=== PATIENT | female | born 1930 | race Caucasian/White ===

== ENCOUNTER → 2016-05-06 | Outpatient (CLI) | payer OTHER ==
--- NOTE | 2016-05-06 11:33 | DX ---
Left Clavicle, 2 Views, 10:27 a.m. Clinical History: 86-year-old female presents for follow up of a left clavicular injury sustained on April 23, 2016. ICD10 Diagnostic Code: S42.022A. Comparison Study: Left clavicle, dated April 27, 2016, and CT imaging of the chest, dated April 27, 2016. Findings: The chest CT demonstrated a medial left clavicular fracture which is challenging to appreci ate because of osseous superimposition. Median sternotomy wires and left subclavian pacemaker wires a re present. The bones are demineralized. There is marked narrowing of the left acromiohumeral distanc e, consistent with a chronic rotator cuff tear. There is some degenerative osteoarthrosis of the AC j oint and of the glenohumeral joint. Impression: Stable appearances since April 27, 2016 in this patient with a left medial clavicular fracture (seen to better advantage on prior CT imaging).
== END ==
LOC: BMCIMAGING 10:15
PROVIDERS: ATTEND Family Medicine
DX: S42.022D Displaced fracture of shaft of left clavicle, subsequent encounter for fracture with routine healing (principal)

== ENCOUNTER → 2016-05-27 | Outpatient (CLI) | payer OTHER ==
--- NOTE | 2016-05-27 10:05 | DX ---
Left Clavicle, Two Views Indication: Left medial fracture. Follow up. Comparison: May 06, 2016, April 27, 2016, and April 23, [address] of the chest dated Decem 2015 Technique: Two AP views. Findings: The subacute medial left clavicular head fracture is obscured by overlying spine on both vi ews. Bones are anatomically aligned. No new fracture. Chronic rotator cuff tear and osteoarthritis ar e unchanged. Left lung apex is clear. Impression: Anatomically aligned subacute medial left clavicle head fracture is obscured by overlying spine.
== END ==
LOC: BMCIMAGING 09:33
PROVIDERS: ATTEND Family Medicine
DX: S42.022D Displaced fracture of shaft of left clavicle, subsequent encounter for fracture with routine healing (principal)

== ENCOUNTER → 2016-09-05 | Outpatient (CLI) | payer OTHER | LOC: FLAB 16:51 → EDSTATUS 16:51 → FIMAGING 16:52 | PROVIDERS: ATTEND Internal Medicine | DX: R60.0 Localized edema (principal) ==

== ENCOUNTER 2016-10-07 09:44 | Inpatient (IN) | payer OTHER ==
--- NOTE | 2016-10-07 10:42 | EDPHY ---
H & P Stated Complaint: skin irritation after animal scratch on left leg yesterday. Time Seen by Provider: 10/07/16 10:02 - Personal History Current Tetanus/Diphtheria Vaccine: No Current Tetanus Diphtheria and Acellular Pertussis (TDAP): No - Medical/Surgical History Hx Asthma: No Hx Chronic Respiratory Disease: No Hx Diabetes: No Hx Cardiac Disease: Yes Hx Renal Disease: No Hx Cirrhosis: No Hx Alcoholism: No Hx HIV/AIDS: No Hx Splenectomy or Spleen Trauma: No Other PMH: valve replacement, dementia, HTN,. double masectomy - Social History Smoking Status: Former smoker Constitutional: Initial Vital Signs Temperature (C) 36.9 C 10/07/16 09:45 Heart Rate 83 10/07/16 09:45 Respiratory Rate 16 10/07/16 09:45 Blood Pressure 124/67 H 10/07/16 09:45 O2 Sat (%) 97 10/07/16 09:45 O2 Delivery Mode Room Air Allergies/Adverse Reactions: EVANGELINA Inhibitors Allergy (Verified 10/07/16 09:53) codeine Allergy (Verified 06/01/09 12:25) Home Medications: Medication Instructions Recorded Furosemide [Lasix] 20 mg PO DAILY 08/18/14 Levothyroxine [Synthroid] 88 mcg PO DAILY@08/18/14 Mv-Mn/FA/Coq10/Lycopene/Lutein 1 each PO DAILY 08/18/14 [Theragran-M Premier 50+ Caplet] Spironolactone [Aldactone] 12.5 mg PO DAILY 08/18/14 Valsartan [Diovan] 80 mg PO DAILY 08/18/14 hydrOXYzine HCL [Vistaril] 10 mg PO HS 08/18/14 Acetaminophen [Tylenol 325mg (*)] 325 mg PO Q4 PRN 04/27/16 Ciprofloxacin [Cipro] 500 mg PO BID 04/27/16 Nebivolol HCl [Bystolic 5 mg (*)] 5 mg PO DAILY@04/27/16 Sertraline HCl [Zoloft 25mg (*)] 25 mg PO HS 04/27/16 Warfarin Sodium [Coumadin 4MG (*)] 4 mg PO DAILY16 04/27/16 Medical Decision Making ED Course/Re-evaluation: CHIEF COMPLAINT: Left leg erythema HISTORY OF PRESENT ILLNESS: This patient is an 86-year-old female who presents to the Emergency Department with erythema and burning pain to her lower left extremity beginning last night. Per pharm spec, her legs appeared normal yesterday. She reports a small abrasion to her left tipton secondary to a neighbor 's dog scratching her with its claw yesterday. She was wearing jeans at the time. At time of presentation, she denies pain to her leg. She denies subjective fever or chills. She has no additional complaints. The patient takes Coumadin and has a history of coronary artery disease with prior CABG. REVIEW OF SYSTEMS: A 10 point review of systems was performed and is negative with the exception of the elements mentioned in the history of present illness. PHYSICAL EXAM: BP 124/67. HR 83. Pulse ox 97%. RR 16. Temp noted at 36.9C General Appearance: Alert, well hydrated, appropriate, and non-toxic appearing. Head: Atraumatic without scalp tenderness or obvious injury Eyes: Pupils equal, round, reactive to light and accommodation, EOMI, no trauma , no injection. Ears: Clear bilaterally, no perforation, normal landmarks Nose: Atraumatic, no rhinorrhea, clear. Throat: There is no erythema or exudates, no lesions, normal tonsils, mucus membranes moist. Neck: Supple, 2+ carotid upstroke, non-tender, no lymphadenopathy. Respiratory: No retractions, no distress, no wheezes, and no accessory muscle use. Lungs are clear to auscultation bilaterally. Cardiovascular: Regular rate and rhythm, no murmurs, rubs, or gallops. Bilateral carotid, radial, dorsalis pedis, and posterior tibial pulses intact. Good capillary refill all extremities. Gastrointestinal: Abdomen is soft, non-tender, non-distended, no masses, no rebound, no guarding, no peritoneal signs. Musculoskeletal: Normal active ROM of all extremities, atraumatic. Left lower leg is edematous, warm, and cellulitic. Neurological: Alert, appropriate, and interactive. The patient has normal DTRs and non-focal cranial nerves, motor, sensory, and cerebellar exam. Skin: No rashes, good turgor, no nodules on palpation. 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 Lives independently. DIFFERENTIAL DIAGNOSIS: The differential diagnosis for the patient's leg erythema included but was not limited to dermatitis, cellulitis. MEDICAL DECISION MAKIN-year-old female presents with acute onset left leg erythema suspicious for possible cellulitis. On exam, her entire lower leg is erythematous and mildly warm. She does have small abrasion just inferior to her left knee. She is afebrile at time of presentation and denies subjective fever. Will consult with Infectious Disease. Labs obtained. WBC elevated at 13.50. 1039: Consultation with Dr. Nikhil Phillip, ID specialist. 1109: Dr. Phillip evaluated the patient in the ED and agrees that she is experiencing cellulitis to her left lower leg. She will be started on IV Vancomycin and admitted to the hospitalist. 1113: Consultation with Kimmy Mason. Dr. Philippe Núñez, hospitalist, accepts admission to med/surg. - Data Points Laboratory Results: Laboratory Results 10/07/16 10:58 10/07/16 10/07/16 10/07/16 10:58 10:58 10:58 WBC 13.50 10^3/uL H 10^3/uL (3.80-9.50) RBC 4.29 10^6/uL 10^6/uL (4.18-5.33) Hgb 13.1 g/dL g/dL (12.6-16.3) Hct 39.8 % % (38.0-47.0) MCV 92.8 fL fL (81.5-99.8) MCH 30.5 pg pg (27.9-34.1) MCHC 32.9 g/dL g/dL (32.4-36.7) RDW 14.3 % % (11.5-15.2) Plt Count 169 10^3/uL 10^3/uL (150-400) MPV 9.8 fL fL (8.7-11.7) Neut % (Auto) 88.0 % H % (39.3-74.2) Lymph % (Auto) 4.4 % L % (15.0-45.0) Gladwin % (Auto) 7.1 % % (4.5-13.0) Eos % (Auto) 0.1 % L % (0.6-7.6) Baso % (Auto) 0.1 % L % (0.3-1.7) Nucleat RBC Rel Count 0.0 % % (0.0-0.2) Absolute Neuts (auto) 11.88 10^3/uL H 10^3/uL (1.70-6.50) Absolute Lymphs (auto) 0.59 10^3/uL L 10^3/uL (1.00-3.00) Absolute Monos (auto) 0.96 10^3/uL H 10^3/uL (0.30-0.80) Absolute Eos (auto) 0.01 10^3/uL L 10^3/uL (0.03-0.40) Absolute Basos (auto) 0.02 10^3/uL 10^3/uL (0.02-0.10) Absolute Nucleated RBC 0.00 10^3/uL 10^3/uL (0-0.01) Immature Gran % 0.3 % % (0.0-1.1) Immature Gran # 0.04 10^3/uL 10^3/uL (0.00-0.10) PT Pending INR Pending APTT Pending Sodium Pending Potassium Pending Chloride Pending Carbon Dioxide Pending Anion Gap Pending BUN Pending Creatinine Pending Estimated GFR Pending Glucose Pending Calcium Pending Departure - Departure Disposition: [facility] Inpatient Acute Clinical Impression: Left leg cellulitis Condition: Fair Referrals: Rut Barbosa MD [Primary Care Provider] - As per Instructions
[2016-10-07 11:09] LABS: % IMMATURE GRANULYOCYTES 0.3 % (0.0-1.1); ABSOLUTE IMMATURE GRANULOCYTES 0.04 10^3/uL (0.00-0.10); ADD DIFF? NO; ADD MORPH? NO; ADD SCAN? NO; ATYPICAL LYMPHOCYTE FLAG 20 (0-99); FRAGMENT RBC FLAG 0 (0-99); HEMATOCRIT 39.8 % (38.0-47.0); HEMOGLOBIN 13.1 g/dL (12.6-16.3); LEFT SHIFT FLG 10 (0-99); LIPEMIA HEMOLYSIS FLAG 80 (0-99); MEAN CELL HEMOGLOBIN 30.5 pg (27.9-34.1); MEAN CELL HEMOGLOBIN CONCENTR. 32.9 g/dL (32.4-36.7); MEAN CELL VOLUME 92.8 fL (81.5-99.8); MEAN PLATELET VOLUME 9.8 fL (8.7-11.7); PLATELET CLUMPS FLAG 0 (0-99); PLATELET COUNT 169 10^3/uL (150-400); RED BLOOD CELL COUNT 4.29 10^6/uL (4.18-5.33); RED CELL DISTRIBUTION WIDTH 14.3 % (11.5-15.2)
[2016-10-07 11:30] LABS: ANION GAP 8 mEq/L (8-16); CALCIUM 9.4 mg/dL (8.5-10.4); CARBON DIOXIDE 25 mEq/l (22-31); CHLORIDE 102 mEq/L (97-110); GLOMERULAR FILTRATION RATE 52; GLUCOSE 97 mg/dL (70-100); POTASSIUM 4.4 mEq/L (3.5-5.2); SODIUM 135 mEq/L (134-144)
[2016-10-07 11:32] LABS: APTT 40.5 SEC (23.0-38.0); INR 2.04 (0.83-1.16); PROTIME(PATIENT) 23.2 SEC (12.0-15.0)
[2016-10-07] MEDS ORDERED: ONDANSETRON DISINTEGRATING 4 MG TAB PO PRN (11:35)
[2016-10-07] MEDS ORDERED: ONDANSETRON 4 MG/2 ML VIAL IVP PRN (11:35)
[2016-10-07] MEDS ORDERED: HYDROmorphONE/DILAUDID 1 MG/ML SYR IVP PRN (11:35)
[2016-10-07] MEDS ORDERED: NS 1,000 ML IV SCH (11:45)
[2016-10-07] MEDS: VANCOMYCIN 750 MG in D5W 150 ML IV SCH ×2 (12:07→23:26)
--- NOTE | 2016-10-07 12:32 | GHP ---
[f rep st] HISTORY AND PHYSICAL DATE OF ADMISSION: 10/07/2016 HISTORY OF PRESENT ILLNESS: The patient is a pleasant 86-year-old female with a history of atrial f ibrillation, presumed mitral valve replacement, chronic venous insufficiency, who was scratched by a dog through her jeans yesterday, and this morning she woke up and her leg was remarkably red. She had really no fever and chills overnight. She has not felt poorly. She has not fallen. She was scratched, not bitten. She has not had fevers or chills. She notes that yesterday her left leg looked the same as her right, which is pigmented with chronic venous stasis changes today. It is bright red and purpuric. It is tender. She has not had lightheadedness or dizziness. [facility] for chronic poorly healing right lower extremity, presumed venous insufficiency ulcer, which appears to be quite well now. PAST MEDICAL HISTORY: 1. Presumed atrial fibrillation. 2. 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 3. Pacemaker placement. 4. Chronic venous insufficiency. 5. Possible COPD. 6. Double mastectomy. REVIEW OF SYSTEMS: Complete 10-point review of systems conducted and negative except as noted in HP I. ALLERGIES: EVANGELINA inhibitors and codeine. MEDICATIONS: Tylenol, ciprofloxacin, Lasix, hydroxyzine, levothyroxine, nebivolol, sertraline, spir onolactone, valsartan, warfarin. SOCIAL HISTORY: She lives off in [facility]. She lives independently. She does well. 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 She has 1 glass of wine with dinner. She is a nonsmoker. FAMILY HISTORY: Parents . PHYSICAL EXAMINATION: PRESENTING VITALS: Temp 37, blood pressure 124/67, pulse 83, breathing 16 ti mes a minute, 97% on room air. GENERAL: No acute distress. HEENT: Sclerae anicteric. Oropharynx clear. Mucous membranes moist. NECK: Supple, without lymphadenopathy or JVD. LUNGS: Clear to a uscultation anterolaterally. HEART: S1, S2. There is a holosystolic murmur with a metallic click. Pacemaker is clean, dry, and intact. She has had double mastectomies. ABDOMEN: Soft, nontender, nondistended. EXTREMITIES: Left lower extremity is red, even purpuric. It is warm. There is a l ittle bit of lymphangitic streaking in the medial thigh. There is no tender inguinal lymphadenopath y. There is no fluctuance. The site of the scratch is scabbed over, but non-fluctuant. Her right lower extremity shows chronic venous stasis changes. The aforementioned ulcer looks quite good. NE UROLOGIC: Nonfocal. SKIN: As described in the extremity exam. LABORATORY DATA: White count is 13.5 with a left shift, hematocrit is 39.8, platelets are 169,000. INR is 2. Sodium 135, potassium 4.4, chloride 102, bicarb 25, BUN 18, creatinine 1.0, glucose 9.4. I have discussed the case with Dr. Nikhil Lamb. I have reviewed previous imaging studies and int erpreted them myself. ASSESSMENT AND PLAN: This is an 86-year-old female with multiple comorbidities, chronic venous tu is changes, here with ulcer. 1. Cellulitis: This is remarkable in nature. In appearance, I think part of it has to do with her chronic venous stasis changes. She received vancomycin. We will order blood cultures. ID will se e her in consultation as they know her. At this point in time, I do not suspect necrotizing fasciit is. 2. Coumadin therapy is presumed from mechanical valve. Her INR is therapeutic. We will follow dick harley. 3. Pain: We will schedule Tylenol and p.r.n. hydromorphone. 4. Heart failure: Patient appears euvolemic. I am actually going to give her a liter of IV fluids and we can start her diuretics tomorrow. 5. Mechanical heart valve: Blood cultures will be drawn. DISPOSITION: Inpatient status. /[id number]/MODL
[2016-10-07] MEDS: ACETAMINOPHEN 500 MG TAB PO SCH ×2 (14:34→20:41)
--- NOTE | 2016-10-07 16:07 | WOCRNPDOC ---
WOCRN Advanced Assessment Note - Skin Integrity Problem, Advanced Assess Left Lower Leg Dressing Type: Open to Air Exudate Amount: Minimal Exudate Color: Red, Brown Exudate Characteristic(s): Cloudy, Sanguinopurulent Integumentary Issue Intervention: Dressing Applied, Dressing Initialed & Dated, Silver Gel Applied Heather Wound Tissue: Hot, Swollen, Erythema Marked by Wound RN, Hemosiderin Staining, Painful/Tender Heather Wound Swelling: Moderate Wound Bed Color: Red Wound Bed Constitution: Draining Purulent Blister Site Measurement - Head-to-Toe Length X Width X Depth (cm): [id number] Skin Integrity Problem Comment: During assessment of LLE, an intact bulla was noted just distal to L knee, fluctuant w/ pale coloring indicative of purulence. Cleansed site w/ NS and gauze, and distal margin opened up, revealing sanguinopurulent drainage. Wound culture taken, however due to the skin over this site remaining mostly intact,it is likely culture will grow cutaneous bacteria. Flushed under the intact skin w/ NS to cleanse site, then applied Silvasorb gel and Allevyn. Marked erythema from ankle to lower thigh. There is also significant hemosiderin staining throughout this extremity, consistent w/ venous stasis. Patient has +2 pitting edema, noticeably more so than other leg. Will report findings to ID. set up mechanic Karina present and assisting. Wound RN will follow up with patient on Wednesday 10/11. Right Lower Leg Dressing Type: Open to Air Exudate Amount: None Exudate Characteristic(s): None Heather Wound Tissue: Hemosiderin Staining, Ankle Flare Skin Integrity Problem Comment: Fully epithelialized, healing wounds noted over R lateral ankle/lower leg. Per patient report, she had a venous stasis wound to this site for "several months," and [facility]. Presently, wound remains epithelialized, w/ some venous stasis dermatitis noted to surrounding tissue. Entire R leg has hemosiderin staining throughout, and trace edema. Site does not require wound care at this time. Patient reports wearing compression stockings in the outpatient setting, and will continue to do so upon dc.
--- NOTE | 2016-10-07 19:04 | PCMIDPN ---
Assessment/Plan: Assessment: Left lower extremity cellulitis. This appears to start from a a small traumatic injury on the anterior upper portion of her left tipton. She has a remarkable erythematous response to this which I attribute to confluent purpuric changes with inflammation in her lower extremity. Underlying this I think is routine cellulitis probably streptococcal or staphylococcal. Patient does have a history of MRSA wound infections of her leg. Will use vancomycin 750 mg IV q.12 hours. Will follow her by laboratory and clinically going forward. Alerted her primary care physician Dr. Barbosa to her admission. Plan: 1. vancomycin 750 mg IV q.12 hours. 2. Follow appearance of the left lower extremity. 3. Follow up on blood cultures. 10/07/16 19:57 Subjective: Patient is resting comfortably. She is nontoxic and does not complain of fevers or chills. She in fact is quite surprised that her left lower extremity looks as red as it does since yesterday. The injury with the dog occurred in the evening yesterday. No fevers or chills. Objective: Vancomycin # 1 Vital Signs Temp Pulse Resp BP Pulse Ox 37 C 75 18 127/64 H 96 10/07/16 13:57 10/07/16 13:57 10/07/16 13:57 10/07/16 13:57 10/07/16 13:57 10/06/16 10/07/16 10/08/16 05:59 05:59 05:59 Intake Total 650 Balance 650 - Physical Exam General Appearance: WD/WN, alert, no apparent distress, thin, non-toxic Respiratory: lungs clear, normal breath sounds, No respiratory distress Cardiac/Chest: regular rate, rhythm, No tachycardia Extremities: pedal edema ( bilateral lower extremities but left much greater than right.), inflammation ( Left side), erythema, No non-tender, No normal inspection ( left lower extremity with significant edema compared to right. Positive erythema on the anterior aspect.) Skin: normal color, warm/dry, rash Neuro/Psych: alert, normal mood/affect, oriented x 3 ICD10 Worksheet Patient Problems: Problems Problem Status Onset Left leg cellulitis Acute C. difficile diarrhea Acute ~08/13/16 Fracture of left clavicle Acute Leg ulcer Acute MRSA (methicillin resistant Staphylococcus aureus) Acute 04/12/16
[2016-10-07] MEDS: SERTRALINE HCL 25 MG TAB PO SCH (20:42)
[2016-10-07] MEDS: WARFARIN SODIUM 4 MG TAB PO SCH (20:42)
[2016-10-07] MEDS: CLOBETASOL PROPIONATE TP SCH (20:42)
[2016-10-07] MEDS: hydrOXYzine HCL 25 MG TAB PO SCH (20:42)
[2016-10-07] MEDS: FLUOCINONIDE 0.05% 15 GM CREAM TP SCH (23:27)
[2016-10-08 05:45] LABS: % IMMATURE GRANULYOCYTES 0.4 % (0.0-1.1); ABSOLUTE IMMATURE GRANULOCYTES 0.03 10^3/uL (0.00-0.10); ADD DIFF? NO; ADD MORPH? NO; ADD SCAN? NO; ATYPICAL LYMPHOCYTE FLAG 0 (0-99); FRAGMENT RBC FLAG 0 (0-99); HEMATOCRIT 36.3 % (38.0-47.0); HEMOGLOBIN 11.9 g/dL (12.6-16.3); LEFT SHIFT FLG 0 (0-99); LIPEMIA HEMOLYSIS FLAG 80 (0-99); MEAN CELL HEMOGLOBIN 30.4 pg (27.9-34.1); MEAN CELL HEMOGLOBIN CONCENTR. 32.8 g/dL (32.4-36.7); MEAN CELL VOLUME 92.8 fL (81.5-99.8); MEAN PLATELET VOLUME 9.7 fL (8.7-11.7); PLATELET CLUMPS FLAG 10 (0-99); PLATELET COUNT 136 10^3/uL (150-400); RED BLOOD CELL COUNT 3.91 10^6/uL (4.18-5.33); RED CELL DISTRIBUTION WIDTH 14.4 % (11.5-15.2)
[2016-10-08 05:51] LABS: INR 2.1 (0.83-1.16); PROTIME(PATIENT) 23.7 SEC (12.0-15.0)
[2016-10-08] MEDS: ACETAMINOPHEN 500 MG TAB PO SCH ×3 (05:57→21:57)
[2016-10-08] MEDS: LEVOTHYROXINE 88 MCG TAB PO SCH (05:57)
[2016-10-08 06:08] LABS: ANION GAP 9 mEq/L (8-16); CALCIUM 8.6 mg/dL (8.5-10.4); CARBON DIOXIDE 19 mEq/l (22-31); CHLORIDE 107 mEq/L (97-110); CREATININE 0.9 mg/dL (0.6-1.0); GLOMERULAR FILTRATION RATE 59; GLUCOSE 88 mg/dL (70-100); POTASSIUM 3.9 mEq/L (3.5-5.2); SODIUM 135 mEq/L (134-144)
[2016-10-08] MEDS: FUROSEMIDE 20 MG TAB PO SCH (08:57)
[2016-10-08] MEDS: MULTIVITAMINS 1 EACH TAB PO SCH (08:57)
[2016-10-08] MEDS: SPIRONOLACTONE 25 MG TAB PO SCH (08:57)
[2016-10-08] MEDS: NEBIVOLOL HCL 5 MG TAB PO SCH (08:57)
[2016-10-08] MEDS: VALSARTAN 80 MG TAB PO SCH (08:58)
[2016-10-08] MEDS: VANCOMYCIN 750 MG in D5W 150 ML IV SCH ×2 (12:26→23:33)
--- NOTE | 2016-10-08 12:51 | HOSPPROG ---
Hospitalist Progress Note Assessment/Plan: Patient is an 86 y/o woman w a hx of afib, mitral valve replacement who was scratched by her dog and developed a lower extremity cellulitis. Today is my first encounter with the patient, chart reviewed. *left lower ext cellulitis/MRSA vanco blood cx pending *mitral valve replacement INR is therapeutic cont monitoring *Pain due to the above meds ordered *chronic venous insufficiency she has a chronic wound ulcer *dvt prophylaxis: On OAC Subjective: Kathy is not c/o any pain/ overall feeling fine. Objective: Vital Signs Temp Pulse Resp BP Pulse Ox 36.4 C 83 18 127/77 H 95 10/08/16 08:00 10/08/16 08:00 10/08/16 08:00 10/08/16 08:00 10/08/16 08:00 Microbiology 10/07/16 15:55 Gram Stain - Final Leg - Swab Laboratory Results 10/08/16 05:23 10/08/16 05:23 10/07/16 10/08/16 10/09/16 05:59 05:59 05:59 Intake Total 650 Balance 650 PT 23.7 SEC (12.0-15.0) H 10/08/16 05:23 INR 2.10 (0.83-1.16) H 10/08/16 05:23 - Physical Exam Constitutional: no apparent distress, chronically ill appearing Eyes: PERRL Ears, Nose, Mouth, Throat: hearing normal Cardiovascular: regular rate and rhythym, systolic murmur Respiratory: no respiratory distress Gastrointestinal: normoactive bowel sounds Skin: other (left lower extremity is reddened/ has a dressing on the upper tipton area/ minimal swelling) Neurologic: AAOx3 Psychiatric: interacting appropriately ICD10 Worksheet Patient Problems: Problems Problem Status Onset Left leg cellulitis Acute C. difficile diarrhea Acute ~08/13/16 Fracture of left clavicle Acute Leg ulcer Acute MRSA (methicillin resistant Staphylococcus aureus) Acute 04/12/16
--- NOTE | 2016-10-08 13:38 | PCMIDPN ---
Assessment/Plan: Assessment/Plan: 1. LLE cellulitis after trauma to skin: - small wound with some purulent drainage on left leg. Dressing/wound care noted. -Erythema is still significant and probably not much changed compared to yesterday. Not worse or extending beyond demarcated lines. - on vanco empirically - will order vanco trough for tonight - creatinine stable. - wound cx with GPC on GS, cultures pending - blood cx pending - Discussed importance of LE elevation. - Continue current care for now. Discussed plan of care with patient. Meds vanco 750mg q12- Subjective: AFebrile. feels better. denies LE pain. less swelling. still red throughout left leg. denies sob, abd pain . has loose stools which is chronic for several months. Objective: Vital Signs Temp Pulse Resp BP Pulse Ox 36.4 C 83 18 127/77 H 95 10/08/16 08:00 10/08/16 08:00 10/08/16 08:00 10/08/16 08:00 10/08/16 08:00 Microbiology 10/07/16 15:55 Gram Stain - Final Leg - Swab Laboratory Results 10/08/16 05:23 10/08/16 05:23 10/07/16 10/08/16 10/09/16 05:59 05:59 05:59 Intake Total 650 Balance 650 - Physical Exam General Appearance: alert, no apparent distress Respiratory: lungs clear Cardiac/Chest: regular rate, rhythm Extremities: swelling Abdomen: normal bowel sounds, non-tender, soft, No distended Skin: erythema (LLE: erythema superimposed on top of extensive chronic venous stasis pigmentation. skin is onlhy mild warm. non tnder. pitting edema present. ) ICD10 Worksheet Patient Problems: Problems Problem Status Onset Left leg cellulitis Acute C. difficile diarrhea Acute ~08/13/16 Fracture of left clavicle Acute Leg ulcer Acute MRSA (methicillin resistant Staphylococcus aureus) Acute 04/12/16
[2016-10-08] MEDS: SERTRALINE HCL 25 MG TAB PO SCH (21:57)
[2016-10-08] MEDS: WARFARIN SODIUM 4 MG TAB PO SCH (21:58)
[2016-10-08] MEDS: hydrOXYzine HCL 25 MG TAB PO SCH (21:58)
[2016-10-08] MEDS: CLOBETASOL PROPIONATE TP SCH (23:50)
[2016-10-08] MEDS: FLUOCINONIDE 0.05% 15 GM CREAM TP SCH (23:51)
[2016-10-09] MEDS: LEVOTHYROXINE 88 MCG TAB PO SCH (05:31)
[2016-10-09] MEDS: ACETAMINOPHEN 500 MG TAB PO SCH ×3 (05:31→21:48)
[2016-10-09 06:06] LABS: INR 2.46 (0.83-1.16); PROTIME(PATIENT) 26.9 SEC (12.0-15.0)
[2016-10-09] MEDS: VALSARTAN 80 MG TAB PO SCH (08:26)
[2016-10-09] MEDS: FUROSEMIDE 20 MG TAB PO SCH (08:26)
[2016-10-09] MEDS: NEBIVOLOL HCL 5 MG TAB PO SCH (08:26)
[2016-10-09] MEDS: MULTIVITAMINS 1 EACH TAB PO SCH (08:26)
[2016-10-09] MEDS: SPIRONOLACTONE 25 MG TAB PO SCH (08:26)
--- NOTE | 2016-10-09 11:10 | PCMIDPN ---
Assessment/Plan: #LLE cellulitis: Culture show MRSA, pasteurella. minimal improvement likely the result in gap in therapy for pasteurella. --continue elevation --continue vancomycin with an adjusted dose of 1.25 g IV daily --add Unasyn 3 g IV Q 6 for coverage of pasteurella --possible step-down to oral therapy: Doxycycline 100 mg twice daily once clinical improvement #diarrhea and h/o cdiff. Patient's caregiver reports history of C diff in July 2016, confirmed by review of chart. Patient describing loose stools twice daily which is outside of her norm. --recheck C diff PCR Medications Vancomycin 750 mg IV Q 12, #2 Microbiology 10/07 blood cultures (2): No growth today 10/07 wound culture: MRSA and pasteurella Subjective: Patient denies pain associated with her left lower extremity. She does feel that swelling is slightly improved. Objective: Vital Signs Temp Pulse Resp BP Pulse Ox 36.0 C 75 18 130/80 H 96 10/09/16 08:00 10/09/16 08:00 10/09/16 08:00 10/09/16 08:00 10/09/16 08:00 Microbiology 10/07/16 15:55 Gram Stain - Final Leg - Swab Laboratory Results 10/08/16 05:23 10/08/16 05:23 10/08/16 10/09/16 10/10/16 05:59 05:59 05:59 Intake Total 650 Balance 650 - Physical Exam General Appearance: alert, no apparent distress EENT: No scleral icterus, No thrush Respiratory: lungs clear Cardiac/Chest: regular rate, rhythm, systolic murmur Extremities: erythema (Erythema in the stocking distribution left lower extremity more prominent on the anterior surface, posterior lower thigh with faded erythema. Wound on upper tipton, foul smelling with serosanguineous fluid) Abdomen: non-tender, soft Skin: No rash Neuro/Psych: alert, normal mood/affect - Time Spent With Patient Time Spent with Patient: greater than 35 minutes Time Spent with Patient: Greater than 35 minutes spent on this patients care, greater than 50% of time spent counseling, educating, and coordinating care regarding the above mentioned plan. ICD10 Worksheet Patient Problems: Problems Problem Status Onset Left leg cellulitis Acute C. difficile diarrhea Acute ~08/13/16 Fracture of left clavicle Acute Leg ulcer Acute MRSA (methicillin resistant Staphylococcus aureus) Acute 04/12/16
[2016-10-09] MEDS ORDERED: VANCOMYCIN IV SCH (11:30)
[2016-10-09] MEDS ORDERED: D5W IV SCH (11:30)
[2016-10-09] MEDS: VANCOMYCIN 1.25 GM in D5W 250 ML IV SCH (12:43)
[2016-10-09] MEDS: AMPICILLIN/SULBACTAM 3 GM in NS 100 ML IV SCH ×4 (12:43→21:48)
--- NOTE | 2016-10-09 13:20 | HOSPPROG ---
Hospitalist Progress Note Assessment/Plan: Patient is an 86 y/o woman w a hx of afib, mitral valve replacement who was scratched by her dog and developed a lower extremity cellulitis. Today is my first encounter with the patient, chart reviewed. *left lower ext cellulitis/MRSA, pasteurella not much improvement add jt, D/W Dr Susie steel blood cx ngtd Doxycycline 100 mg twice daily once clinical improvement *mitral valve replacement INR is therapeutic cont monitoring *diarrhea and h/o cdiff. --recheck C diff PCR *Pain due to the above meds ordered better today *chronic venous insufficiency she has a chronic wound ulcer *dvt prophylaxis: On OAC *Dispo unclear, follow progress will need 24 hour care Subjective: Feeling fine. Less pain. Some diarrhea. Objective: Vital Signs Temp Pulse Resp BP Pulse Ox 36.0 C 75 18 130/80 H 96 10/09/16 08:00 10/09/16 08:00 10/09/16 08:00 10/09/16 08:00 10/09/16 08:00 Microbiology 10/07/16 15:55 Gram Stain - Final Leg - Swab Laboratory Results 10/08/16 05:23 10/08/16 05:23 10/08/16 10/09/16 10/10/16 05:59 05:59 05:59 Intake Total 650 Balance 650 PT 26.9 SEC (12.0-15.0) H 10/09/16 05:27 INR 2.46 (0.83-1.16) H 10/09/16 05:27 - Physical Exam Constitutional: no apparent distress, not in pain, chronically ill appearing Eyes: PERRL, anicteric sclera, EOMI Ears, Nose, Mouth, Throat: moist mucous membranes, hearing normal, ears appear normal Cardiovascular: No JVD, No tachycardia, No edema Respiratory: no respiratory distress, no rales or rhonchi, reduced air movement Gastrointestinal: No tenderness, No ascites, No guarding Skin: warm, abrasion, erythema Musculoskeletal: no joint effusions, muscular tenderness, generalized weakness Psychiatric: not anxious, not encephalopathic, poor insight, poor judgement, poor memory ICD10 Worksheet Patient Problems: Problems Problem Status Onset Left leg cellulitis Acute C. difficile diarrhea Acute ~08/13/16 Fracture of left clavicle Acute Leg ulcer Acute MRSA (methicillin resistant Staphylococcus aureus) Acute 12/16/16
[2016-10-09 15:47] VITALS: RESP 16
[2016-10-09] MEDS ORDERED: WARFARIN SODIUM 2 MG TAB PO SCH (21:00)
[2016-10-09] MEDS: hydrOXYzine HCL 25 MG TAB PO SCH (21:48)
[2016-10-09] MEDS: SERTRALINE HCL 25 MG TAB PO SCH (21:48)
[2016-10-09] MEDS: CLOBETASOL PROPIONATE TP SCH (22:00)
[2016-10-09] MEDS: FLUOCINONIDE 0.05% 15 GM CREAM TP SCH (22:01)
[2016-10-10] MEDS: AMPICILLIN/SULBACTAM 3 GM in NS 100 ML IV SCH ×2 (02:48→08:36)
[2016-10-10] MEDS: LEVOTHYROXINE 88 MCG TAB PO SCH (06:27)
[2016-10-10] MEDS: ACETAMINOPHEN 500 MG TAB PO SCH (06:27)
[2016-10-10] MEDS: FUROSEMIDE 20 MG TAB PO SCH (08:41)
[2016-10-10] MEDS: MULTIVITAMINS 1 EACH TAB PO SCH (08:41)
[2016-10-10] MEDS: SPIRONOLACTONE 25 MG TAB PO SCH (08:42)
[2016-10-10] MEDS: NEBIVOLOL HCL 5 MG TAB PO SCH (08:43)
[2016-10-10] MEDS: VALSARTAN 80 MG TAB PO SCH (08:44)
[2016-10-10 08:46] VITALS: BP 141/77
[2016-10-10 09:03] VITALS: PULSE 77; TEMP 97.6; O2SAT 96
--- NOTE | 2016-10-10 11:26 | PCMIDPN ---
Assessment/Plan: #LLE cellulitis: Culture show MRSA, pasteurella. Doxy will cover both --continue elevation --dc on 10 days of Doxycycline 100 mg twice daily --follow up ID in approx week #diarrhea and h/o cdiff. Cdiff neg Medications Vancomycin 750 mg IV Q 12, #3 Unasyn #1 Microbiology 10/07 blood cultures (2): No growth today 10/07 wound culture: MRSA and pasteurella Subjective: Patient feeling well and strongly desires to go home Objective: Vital Signs Temp Pulse Resp BP Pulse Ox 36.4 C 77 16 141/77 H 96 10/10/16 08:00 10/10/16 08:00 10/10/16 08:00 10/10/16 08:44 10/10/16 08:00 Microbiology 10/07/16 15:55 Gram Stain - Final Leg - Swab Wound Culture - Final MRSA Pasteurella Multocida Laboratory Results 10/08/16 05:23 10/08/16 05:23 10/09/16 10/10/16 10/11/16 05:59 05:59 05:59 Intake Total 500 Balance 500 - Physical Exam General Appearance: alert, no apparent distress Respiratory: lungs clear Cardiac/Chest: regular rate, rhythm, systolic murmur Extremities: erythema (Lamberto erythema in the stocking distribution left lower extremity with wound mid [place]. Erythema overall improved compared to yesterday ; As well as improved swelling) Abdomen: non-tender, soft Pelvic Exam: No rogers Skin: No rash Neuro/Psych: alert, normal mood/affect ICD10 Worksheet Patient Problems: Problems Problem Status Onset C. difficile diarrhea Acute ~08/13/16 Fracture of left clavicle Acute Left leg cellulitis Acute Leg ulcer Acute MRSA (methicillin resistant Staphylococcus aureus) Acute 04/12/16
[2016-10-10] MEDS: VANCOMYCIN 1.25 GM in D5W 250 ML IV SCH (12:05)
--- NOTE | 2016-10-10 12:16 | PDIAF ---
- Diagnosis Diagnosis: MRSA Code Status: Full Code - Medication Management Discharge Medications: Medications to Continue on Transfer Clobetasol Propionate 1 adri TP HS 10/07/16 [Last Taken 10/06/16] Fluocinonide 0.05% [Lidex 0.05% Cream] 1 adri TP HS 10/07/16 [Last Taken 10/06/16 ] Furosemide [Lasix 20 MG (*)] 20 mg PO DAILY 10/07/16 [Last Taken 10/07/16] Levothyroxine [Synthroid 88 mcg (*)] 88 mcg PO DAILY06 10/07/16 [Last Taken 04/13] Multivitamins [Multivitamin (*)] 1 each PO DAILY 10/07/16 [Last Taken 10/07/16] Nebivolol HCl [Bystolic 5 mg (*)] 5 mg PO DAILY 10/07/16 [Last Taken 10/07/16] Sertraline HCl [Zoloft 25mg (*)] 25 mg PO HS 10/07/16 [Last Taken 10/06/16] Spironolactone [Aldactone 25 MG (*)] 12.5 mg PO DAILY 10/07/16 [Last Taken 10/07] Valsartan [Diovan (*)] 80 mg PO DAILY 10/07/16 [Last Taken 10/07/16] Warfarin Sodium [Coumadin 2MG (*)] 2 mg PO WEFRSA@21 10/07/16 [Last Taken ] Warfarin Sodium [Coumadin 4MG (*)] 4 mg PO SUMOTUTH@21 10/07/16 [Last Taken 03/14] hydrOXYzine HCL [hydrOXYzine HCL (RX)] 25 mg PO HS 10/07/16 [Last Taken 10/06/16 ] Acetaminophen [Tylenol ES 500 mg (*)] 1,000 mg PO Q8 tab 10/10/16 [Last Taken Unknown] Doxycycline Hyclate [Vibramycin 100 MG (*)] 100 mg PO BID #20 cap 10/10/16 [ Last Taken Unknown] Discharge Medications: Refer to the Discharge Home Medication list for PRN reason. PICC Care - Routine: N/A - Orders Services needed: Home Care, Registered Nurse, Physical Therapy Home Care Face to Face: I certify that this patient was under my care and that I had the required [id number] encounter meeting the encounter requirements on the discharge day. My findings support the fact that the patient is homebound as defined in CMS Chapter 7 Medicare Benefits Manual 30.1.1, The condition of the patient is such that there exists a normal inability to leave home and consequently, leaving home would require a considerable and taxing effort. Diet Recommendation: no restrictions on diet - Follow Up Care Current Providers and Referrals: Rut Barbosa MD [Primary Care Provider] - As per Instructions Nikhil Phillip MD [Medical Doctor] - follow up in 1 week
--- NOTE | 2016-10-10 13:43 | GDS ---
[f rep st] DISCHARGE SUMMARY DISCHARGE DIAGNOSES: 1. Left lower extremity cellulitis with methicillin-resistant Staphylococcus aureus and Pasteurella . 2. History of mitral valve replacement. 3. Diarrhea. 4. Chronic venous insufficiency. CONSULTATIONS: Infectious Disease. PHYSICAL EXAM: GENERAL: The patient is alert. VITAL SIGNS: Afebrile at 36.4, pulse is 77, respir atory rate 16, blood pressure is 141/77. She is saturating 96% on room air. I have seen and evalua josie the patient on the day of discharge. HOSPITAL COURSE: The patient is an 86-year-old female who presented to the hospital with complaints of: 1. Left lower extremity cellulitis. During this hospitalization. The patient had a culture demons trating MRSA as well as Pasteurella. She was treated with vancomycin as well as Unasyn, and receive d an infectious disease consultation. Her leg has significantly improved. She has transitioned to doxycycline for 100 mg p.o. b.i.d. for a total of 10 days. She will follow up in the outpatient set ting with Dr. Phillip at [facility]. 2. History of mitral valve replacement. Her INR is therapeutic. She will continue INR adjustments in the outpatient setting. 3. Diarrhea. Clostridium difficile is negative. This is stable. 4. Pain. This has resolved. 5. Chronic venous insufficiency. She is at her baseline with regard to this. DISPOSITION: The patient will be discharged home with 24-hour [facility] There are no pending studies. DISCHARGE MEDICATIONS: Please refer to EMR form. I have provided the patient a prescription for do xycycline 100 mg p.o. b.i.d., #20. I have discussed the patient's disposition with Dr. Josephine Richards of infectious disease, who was in ag reement with this plan. I spent greater than 35 minutes in the care, coordination and management of the patient's discharge. /[id number]/MODL
== END 2016-10-10 15:18 | disposition home health service (06) | DRG 868 ==
LOC: F3E 13:50
PROVIDERS: ADMIT Internal Medicine; ATTEND Internal Medicine
DX: A28.0 Pasteurellosis (principal); L03.116 Cellulitis of left lower limb; B95.62 Methicillin resistant Staphylococcus aureus infection as the cause of diseases classified elsewhere; T79.8XXA Other early complications of trauma, initial encounter; S80.811A Abrasion, right lower leg, initial encounter; W54.1XXA Struck by dog, initial encounter; Y92.9 Unspecified place or not applicable; Y99.8 Other external cause status; R19.7 Diarrhea, unspecified; I87.2 Venous insufficiency (chronic) (peripheral); I10 Essential (primary) hypertension; I25.10 Atherosclerotic heart disease of native coronary artery without angina pectoris; Z95.1 Presence of aortocoronary bypass graft; Z95.2 Presence of prosthetic heart valve; Z79.01 Long term (current) use of anticoagulants; Z95.0 Presence of cardiac pacemaker; Z90.13 Acquired absence of bilateral breasts and nipples
CPT/HCPCS: 97165-GO; G8987-GO-CI; G8988-GO-CI; G8989-GO-CI; J0295; J3370

== ENCOUNTER → 2016-11-28 | Outpatient (CLI) | payer OTHER | LOC: BMCIMAGING 10:01 | PROVIDERS: ATTEND Physician Assistant | DX: R52 Pain, unspecified (principal); I70.0 Atherosclerosis of aorta ==

== ENCOUNTER 2017-03-02 10:53 | Inpatient (IN) | payer OTHER ==
--- NOTE | 2017-03-02 11:10 | CPEKG ---
Heart Rate: 70 RR Interval: 857 QRSD Interval: 140 QT Interval: 456 QTC Interval: 493 QRS [place]: 0 T Wave [place]: 81 EKG Severity - ABNORMAL ECG - EKG Impression: AFIB/FLUT AND V-PACED COMPLEXES Electronically Signed By: Sierra Adam 02-Mar-2017 15:10:47
--- NOTE | 2017-03-02 11:13 | EDPHY ---
H & P Time Seen by Provider: 03/02/17 11:02 HPI/ROS: CHIEF COMPLAINT: Neck pain, left hip pain HISTORY OF PRESENT ILLNESS: 86-year-old female with dementia on Coumadin presents after a fall with neck pain and left hip pain. This morning she fell in the kitchen, but she does not remember the reason for the fall. She was found on the floor by her caregiver. She was complaining of neck and left hip pain. The left hip pain is moderate to severe and she is unable to stand or walk because of hip pain. She also has moderate left-sided chest pain after the fall. She was unable to get off the floor unassisted. EMS was contacted. She was placed in the cervical spine collar. She is not sure if she hit her head. She denies shortness of breath, chest pain, abdominal pain. REVIEW OF SYSTEMS: Constitutional: No recent illness Eyes: No visual changes or eye pain ENT: No dental trauma Neck:No pain or injury Respiratory: No shortness of breath Gastrointestinal: No abdominal pain, no vomiting Back:No pain or injury Genitourinary: No hematuria Skin: No lacerations Neurological: No headache Past Medical/Surgical History: Dementia Mitral valve replacement Hypertension Atrial fibrillation Social History: Lives in own home, caregiver visits twice a day Smoking Status: Former smoker Physical Exam: General Appearance: Alert, pleasant, no distress Head: No scalp swelling or tenderness Eyes: No conjunctival erythema, PERRLA, EOMI ENT, Mouth: Nasal abrasion, no oral trauma, no bony tenderness Neck: In cervical spine collar, diffuse tenderness, without localizing tenderness over the midline Respiratory: normal inspection, left chest wall tenderness, lungs clear bilaterally Cardiovascular: Regular rate and rhythm Abdomen: Abdomen is soft and nontender Skin: No lacerations Back: No midline T/L/S tenderness Extremities: Pelvis is stable and nontender; left hip-pain with range of motion , leg is externally rotated and shortened Neurological: Alert and oriented, normal motor function, normal sensory exam, cranial nerves intact Psychiatric: Mood and affect normal Constitutional: Initial Vital Signs Temperature (C) 36.4 C 03/02/17 10:53 Heart Rate 80 03/02/17 10:53 Respiratory Rate 16 03/02/17 10:53 Blood Pressure 128/86 H 03/02/17 10:53 O2 Sat (%) 92 03/02/17 10:53 O2 Delivery Mode Room Air Allergies/Adverse Reactions: EVANGELINA Inhibitors Allergy (Verified 10/07/16 09:53) codeine Allergy (Verified 06/01/09 12:25) Dlowevr-Ohz-Qko Reductase Inhibitor Allergy (Verified 03/02/17 11:06) Home Medications: Medication Instructions Recorded Clobetasol Propionate 1 adri TP 10/07/16 Fluocinonide 0.05% [Lidex 0.05% 1 adri TP 10/07/16 Cream] Furosemide [Lasix 20 MG (*)] 20 mg PO DAILY@10/07/16 Levothyroxine [Synthroid 88 mcg 88 mcg PO DAILY@10/07/16 (*)] Multivitamins [Multivitamin (*)] 1 each PO DAILY 10/07/16 Nebivolol HCl [Bystolic 5 mg (*)] 5 mg PO DAILY@10/07/16 Sertraline HCl [Zoloft 25mg (*)] 25 mg PO 10/07/16 Spironolactone [Aldactone 25 MG 12.5 mg PO DAILY 10/07/16 (*)] Valsartan [Diovan (*)] 80 mg PO DAILY 10/07/16 Warfarin Sodium [Coumadin 2MG (*)] 6 mg PO MOTH@209910/07/16 Warfarin Sodium [Coumadin 2MG (*)] 4 mg PO SUTUWEFRSA@209903/02/17 hydrOXYzine HCL 10 mg PO 03/02/17 Medical Decision Making - Diagnostics EKG Interpretation: EKG interpreted by me reveals AV paced rhythm, rate 70 Imaging Results: Cervical Spine CT 03/02/17 11:08 Impression: 1. No acute posttraumatic abnormality identified. If there is persistent pain or neurologic deficit, consider MRI and/or flexion and extension views, if clinically indicated. 2. Multilevel degenerative change and spondylolistheses, as above. 3. Additional findings, as above. Findings discussed with Sierra Adam MD on March 02, [address] 03/02/17 11:08 Impression: 1. No acute intracranial findings. 2. Diffuse cerebral atrophy with periventricular and subcortical low attenuation consistent with chronic microvascular ischemic gliosis. 3. Mild mucous membrane thickening in the sinuses with possible maxillary sinusitis. Findings discussed with Sierra Adam MD on March 02, 2017 at 1225 hours. Chest X-Ray 03/02/17 11:09 Impression: No acute findings in the chest. Hip X-Ray 03/02/17 11:09 Impression: 1. Probable nondisplaced subcapital left femoral neck fracture. 2. Comminuted left pubic fracture with extension to the left superior pubic ramus. Extremity CT 03/02/17 13:19 Impression: 1. Probable nondisplaced subcapital femoral neck fracture with osseous assessment limited by osteopenia. 2. Comminuted left pubic fracture extending into the medial aspect of the superior and inferior pubic rami. 3. Nondisplaced transverse sacral fracture. 4. Incomplete visualization of a large anterior pelvic hematoma measuring up to 9 cm in its maximal visualized extent, incompletely visualized on this left hip study. 5. Additional findings as above. Findings discussed with Sierra Adam MD on March 02, 2017 at 1425 hours. ED Course/Re-evaluation: This patient presents as a limited trauma after a fall. Given her advanced age , I upgraded the trauma to a limited+ trauma activation. She is unable to recall what happened this morning and the mechanism of her injury is unclear. She is in a cervical spine collar. She has head, neck, left-sided rib and left hip pain. Appropriate imaging obtained. CT scan of the head and cervical spine read by the radiologist revealed no acute findings. X-ray of the pelvis and left hip independently reviewed by me reveals a left pubic ramus fracture and a possible subcapital hip fracture. CT scan of the left hip ordered to further clarify the left hip fracture. No evidence of rib fracture. This patient will need to be admitted to the Trauma surgery Service. Dr. Mojgan Curry was consulted. CT reveals fx's of the pubic ramus, sacrum and left hip and a 9cm pelvic hematoma, per Dr. Carroll. Reversal of Coumadin d/w Dr. Curry, given artificial valve, will hold off for now. CT abd/pelvis ordered to eval for active extravasation and other possible abdominal injuries. Abdomen is soft, right lower quadrant tenderness present; this is a change from her prior exam. Pt clinically stable. Repeat CBC ordered. Consulted kristyn Han, requests MRI left hip to r/o fx. ED Course/Re-evaluation: This patient presents as a limited trauma after a fall. Given her advanced age , she is actually limited +trauma activation. She is unable to recall what happened this morning and the mechanism of her injury is unclear. She is in a cervical spine collar. She has head, neck, left-sided rib and left hip pain. Appropriate imaging obtained. CT scan of the head and cervical spine read by the radiologist revealed no acute findings. The cervical spine was cleared by me after the normal CT scan of the cervical spine. X-ray of the pelvis and left hip independently reviewed by me reveals a left pubic ramus fracture and a possible subcapital hip fracture. CT scan of the left hip ordered to further clarify the left hip fracture. CXR: no evidence of rib fracture or pneumothorax. This patient will be admitted to the Trauma surgery Service. Dr. Mojgan Curry was consulted. CT reveals fx's of the pubic ramus, sacrum and left hip and a 9cm pelvic hematoma, per Dr. Carroll. Reversal of Coumadin d/w Dr. Curry, FFP initially ordered; given artificial mechanical heart valve, will hold off for now. CT abd/pelvis ordered to evaluate for other intraperitoneal injuries and for active extravasation of pelvic hematoma. Repeat CBC ordered. Pt clinically stable. Consulted kristyn Han, he reviewed Xray/CT scan, requests MRI left hip to r/o fx; however the patient has a pacemaker, so she will not be able to have an MRI. The patient remained stable throughout her emergency department stay. Care was transferred to Dr. Darshan Curry at the end of my shift. She has not yet had the abdominal CT scan and has not received reversal agent for INR. Repeat hematocrit pending. Differential Diagnosis: Differential diagnosis includes though it is not limited to fracture, intracranial hemorrhage, pneumothorax, hemothorax, intra-abdominal hemorrhage. - Data Points Laboratory Results: Laboratory Results 03/02/17 11:23 03/02/17 11:23 Medications Given: Hydrocodone Bitart/Acetaminophen ([place] 5/325) 1 - 2 tab PO Q4 PRN PRN Reason: Pain, Moderate Able to Take PO Stop: 03/12/17 18:53 Last Admin: 03/03/17 05:17 Dose: 2 tab Clobetasol Propionate (Temovate Cream) 1 adri TP HS EDMAR Stop: 08/29/17 20:59 Last Admin: 03/02/17 20:30 Dose: 1 adri Fluocinonide (Lidex 0.05% Cream) 1 adri TP HS [facility] Stop: 08/29/17 20:59 Last Admin: 03/02/17 20:29 Dose: 1 adri Furosemide (Lasix) 20 mg PO DAILY@07 [facility] Stop: 08/30/17 06:59 Last Admin: 03/03/17 06:29 Dose: Not Given Hydroxyzine HCl (Hydroxyzine Hcl) 10 mg PO HS [facility] Stop: 08/29/17 20:59 Last Admin: 03/02/17 20:29 Dose: 10 mg Potassium Chloride/Dextrose/Sod Cl (D5w 1/2 Ns W/ 20 Kcl/L) 1,000 mls @ 75 mls/ hr IV CONT [facility] Stop: 08/29/17 18:59 Last Admin: 03/02/17 20:40 Dose: 1,000 mls Levothyroxine Sodium (Synthroid) 88 mcg PO DAILY@07 [facility] Stop: 08/30/17 06:59 Last Admin: 03/03/17 05:27 Dose: 88 mcg Nebivolol (Bystolic) 5 mg PO DAILY@07 [facility] Stop: 08/30/17 06:59 Last Admin: 03/03/17 06:30 Dose: Not Given Sertraline HCl (Zoloft) 25 mg PO [facility] Stop: 08/29/17 20:59 Last Admin: 03/02/17 22:16 Dose: Not Given Discontinued Medications Sodium Chloride (Ns) 500 mls @ 1,000 mls/hr IV EDNOW ONE PRN Reason: Protocol Stop: 03/02/17 12:26 Last Admin: 03/02/17 12:14 Dose: 500 mls Prothrombin Complex Concent ( Human) 1,500 unit/ IV Miscellaneous Supplies 60 mls @ 0 mls/hr IV ONCE ONE; Per Protocol PRN Reason: Protocol Stop: 03/02/17 19:01 Last Admin: 03/02/17 20:02 Dose: 60 mls Phytonadione 10 mg/ Sodium (Chloride) 51 mls @ 102 mls/hr IV ONCE ONE Stop: 03/02/17 23:29 Last Admin: 03/02/17 22:40 Dose: 51 mls Tranexamic Acid 1,000 mg/ (Sodium Chloride) 110 mls @ 660 mls/hr IV ONCE ONE Stop: 03/02/17 23:09 Last Admin: 03/02/17 22:40 Dose: 110 mls Morphine Sulfate (Morphine) 4 mg IVP EDNOW ONE Stop: 03/02/17 11:33 Last Admin: 03/02/17 11:34 Dose: 4 mg Ondansetron HCl (Zofran) 4 mg IVP EDNOW ONE Stop: 03/02/17 11:33 Last Admin: 03/02/17 11:33 Dose: 4 mg Departure - Departure Disposition: [facility] Inpatient Acute Clinical Impression: Pelvic hematoma Pelvic fracture Qualifiers: Encounter type: initial encounter Pelvic bone location: pubis Sublocation of pubis: superior rim Fracture type: closed Laterality: left Qualified Code(s): S32.512A - Fracture of superior rim of left pubis, initial encounter for closed fracture Condition: Fair
[2017-03-02] MEDS ORDERED: ONDANSETRON 4 MG/2 ML VIAL ONE (11:30)
[2017-03-02 11:31] LABS: % IMMATURE GRANULYOCYTES 0.9 % (0.0-1.1); ABSOLUTE IMMATURE GRANULOCYTES 0.13 10^3/uL (0.00-0.10); ADD DIFF? NO; ADD MORPH? NO; ADD SCAN? NO; ATYPICAL LYMPHOCYTE FLAG 0 (0-99); FRAGMENT RBC FLAG 0 (0-99); HEMATOCRIT 34.2 % (38.0-47.0); HEMOGLOBIN 11.4 g/dL (12.6-16.3); LEFT SHIFT FLG 10 (0-99); LIPEMIA HEMOLYSIS FLAG 80 (0-99); MEAN CELL HEMOGLOBIN 30.3 pg (27.9-34.1); MEAN CELL HEMOGLOBIN CONCENTR. 33.3 g/dL (32.4-36.7); MEAN PLATELET VOLUME 9.4 fL (8.7-11.7); PLATELET CLUMPS FLAG 10 (0-99); PLATELET COUNT 161 10^3/uL (150-400); RED BLOOD CELL COUNT 3.76 10^6/uL (4.18-5.33); RED CELL DISTRIBUTION WIDTH 14.5 % (11.5-15.2)
[2017-03-02] MEDS ORDERED: ONDANSETRON 4 MG/2 ML VIAL IVP ONE (11:32)
[2017-03-02 11:40] LABS: INR 2.79 (0.83-1.16); PROTIME(PATIENT) 29.8 SEC (12.0-15.0)
[2017-03-02 11:43] LABS: ANION GAP 15 mEq/L (8-16); CALCIUM 8.9 mg/dL (8.5-10.4); CARBON DIOXIDE 19 mEq/l (22-31); CHLORIDE 106 mEq/L (97-110); CREATININE 0.9 mg/dL (0.6-1.0); GLOMERULAR FILTRATION RATE 59; GLUCOSE 124 mg/dL (70-100); POTASSIUM 4.3 mEq/L (3.5-5.2); SODIUM 140 mEq/L (134-144)
[2017-03-02] MEDS ORDERED: NS 500 ML IV ONE (11:57)
[2017-03-02 16:18] LABS: % IMMATURE GRANULYOCYTES 0.6 % (0.0-1.1); ABSOLUTE IMMATURE GRANULOCYTES 0.07 10^3/uL (0.00-0.10); ADD DIFF? NO; ADD MORPH? NO; ADD SCAN? NO; ATYPICAL LYMPHOCYTE FLAG 0 (0-99); FRAGMENT RBC FLAG 0 (0-99); HEMATOCRIT 29.5 % (38.0-47.0); HEMOGLOBIN 9.7 g/dL (12.6-16.3); LEFT SHIFT FLG 0 (0-99); LIPEMIA HEMOLYSIS FLAG 80 (0-99); MEAN CELL HEMOGLOBIN CONCENTR. 32.9 g/dL (32.4-36.7); MEAN CELL VOLUME 91.3 fL (81.5-99.8); MEAN PLATELET VOLUME 9.8 fL (8.7-11.7); PLATELET CLUMPS FLAG 0 (0-99); PLATELET COUNT 146 10^3/uL (150-400); RED BLOOD CELL COUNT 3.23 10^6/uL (4.18-5.33); RED CELL DISTRIBUTION WIDTH 14.6 % (11.5-15.2)
[2017-03-02] MEDS ORDERED: IOPAMIDOL (ISOVUE-300) 100 ML BTL ONE (16:23)
[2017-03-02] MEDS ORDERED: HYDROmorphONE/DILAUDID 1 MG/ML INJ IVP PRN (18:54)
[2017-03-02] MEDS ORDERED: ONDANSETRON 4 MG/2 ML VIAL IVP PRN (18:54)
[2017-03-02] MEDS ORDERED: HUMAN PROTHROMBIN COMPLX IV ONE (19:00)
[2017-03-02] MEDS ORDERED: D5W 1/2 NS W/ 20 KCl/L 1,000 ML IV SCH (19:00)
--- NOTE | 2017-03-02 19:10 | SOAPPROG ---
SOAP Progress Note Assessment/Plan: Assessment: 86 female on coumadin for mitral valve and afib with fall at home head and neck ct ok abd ct left pubic fx with large pelvic hematoma and nondisplaced sacral fx inr 2.7 cxr clear, pacer and mitral valve seen heent nonicteric, no signs of trauma, peerla, neck supple and nontender chest clear and nontender cor rr abd tender over left pubic aarea and palpable large mass in ant abdomen extr full pulses full rom neuro intact skin intact back nontender phx afib, pacer, mitral valve/ hypertension all see list meds see list Plan:INR reversal/ admit for obs/ ortho consult 03/02/17 19:04 Objective: Vital Signs Temp Pulse Resp BP Pulse Ox 36.4 C 74 18 101/52 L 88 L 03/02/17 10:53 03/02/17 16:53 03/02/17 16:53 03/02/17 16:53 03/02/17 16:53 Laboratory Results 03/02/17 16:10 03/01/17 03/02/17 03/03/17 06:59 05:59 05:59 Intake Total 500 Output Total 200 Balance 300 PT 29.8 SEC (12.0-15.0) H 03/02/17 11:23 INR 2.79 (0.83-1.16) H 03/02/17 11:23 ICD10 Worksheet Patient Problems: Problems Problem Status Onset Pelvic fracture Acute C. difficile diarrhea Acute ~08/13/16 Fracture of left clavicle Acute Left leg cellulitis Acute Leg ulcer Acute MRSA (methicillin resistant Staphylococcus aureus) Acute 10/07/16
[2017-03-02] MEDS ORDERED: ENALAPRILAT DIHYDRATE 1.25 MG/ML VIAL ONE (19:53)
[2017-03-02] MEDS ORDERED: hydrALAZINE 20 MG/ML VIAL IVP PRN (20:10)
[2017-03-02] MEDS: hydrOXYzine HCL 10 MG TAB PO SCH (20:29)
[2017-03-02] MEDS: FLUOCINONIDE 0.05% 15 GM CREAM TP SCH (20:29)
[2017-03-02] MEDS: CLOBETASOL 0.05% 15 GM CRTUBE TP SCH (20:30)
[2017-03-02] MEDS: SERTRALINE HCL 25 MG TAB PO SCH (22:16)
[2017-03-02] MEDS ORDERED: TRANEXAMIC ACID 1,000 MG in NS 100 ML IV ONE (23:00)
[2017-03-02] MEDS ORDERED: PHYTONADIONE 10 MG in NS 50 ML IV ONE (23:00)
[2017-03-03 02:25] LABS: % IMMATURE GRANULYOCYTES 0.7 % (0.0-1.1); ABSOLUTE IMMATURE GRANULOCYTES 0.07 10^3/uL (0.00-0.10); ABSOLUTE NRBC COUNT 0.02 10^3/uL (0-0.01); ADD DIFF? NO; ADD MORPH? NO; ADD SCAN? NO; ATYPICAL LYMPHOCYTE FLAG 0 (0-99); FRAGMENT RBC FLAG 0 (0-99); HEMATOCRIT 27.4 % (38.0-47.0); HEMOGLOBIN 9.3 g/dL (12.6-16.3); LEFT SHIFT FLG 0 (0-99); LIPEMIA HEMOLYSIS FLAG 90 (0-99); MEAN CELL HEMOGLOBIN CONCENTR. 33.9 g/dL (32.4-36.7); MEAN CELL VOLUME 91.3 fL (81.5-99.8); MEAN PLATELET VOLUME 9.8 fL (8.7-11.7); NRBC-AUTO% 0.2 % (0.0-0.2); PLATELET CLUMPS FLAG 20 (0-99); PLATELET COUNT 106 10^3/uL (150-400); RED CELL DISTRIBUTION WIDTH 14.6 % (11.5-15.2)
[2017-03-03] MEDS: HYDROCODONE/APAP 5/325 TAB PO PRN ×2 (05:17→14:05)
[2017-03-03] MEDS: LEVOTHYROXINE 88 MCG TAB PO SCH (05:27)
[2017-03-03 06:09] LABS: INR 1.28 (0.83-1.16)
[2017-03-03 06:28] LABS: ANION GAP 5 mEq/L (8-16); CALCIUM 7.9 mg/dL (8.5-10.4); CARBON DIOXIDE 23 mEq/l (22-31); CHLORIDE 106 mEq/L (97-110); CREATININE 1.2 mg/dL (0.6-1.0); GLOMERULAR FILTRATION RATE 42; GLUCOSE 150 mg/dL (70-100); POTASSIUM 5.1 mEq/L (3.5-5.2); SODIUM 134 mEq/L (134-144)
[2017-03-03] MEDS: FUROSEMIDE 20 MG TAB PO SCH (06:29)
[2017-03-03] MEDS: NEBIVOLOL HCL 5 MG TAB PO SCH (06:30)
--- NOTE | 2017-03-03 07:07 | SOAPPROG ---
SOAP Progress Note Assessment/Plan: Assessment: 86 female on coumadin for mitral valve and afib with fall at home head and neck ct ok abd ct left pubic fx with large pelvic hematoma and nondisplaced sacral fx inr 2.7 cxr clear, pacer and mitral valve seen heent nonicteric, no signs of trauma, peerla, neck supple and nontender chest clear and nontender cor rr abd tender over left pubic aarea and palpable large mass in ant abdomen extr full pulses full rom neuro intact skin intact back nontender phx afib, pacer, mitral valve/ hypertension all see list meds see list Plan:INR reversal/ admit for obs/ ortho consult 03/02/17 19:04 03/03/17 07:05 VS STABLE/ AFEBRILE/ HCT 27 AND FU PENDING/ UO MARGINAL/ INR 1.3 Objective: Vital Signs Temp Pulse Resp BP Pulse Ox 37 C 74 17 94/51 L 99 03/03/17 02:00 03/03/17 06:00 03/03/17 06:00 03/03/17 06:00 03/03/17 06:00 Laboratory Results 03/03/17 02:00 03/03/17 05:30 03/02/17 03/03/17 03/04/17 05:59 05:59 05:59 Intake Total 2421 Output Total 200 Balance 2221 PT 16.0 SEC (12.0-15.0) H D 03/03/17 05:35 INR 1.28 (0.83-1.16) H 03/03/17 05:35 ICD10 Worksheet Patient Problems: Problems Problem Status Onset Pelvic fracture Acute C. difficile diarrhea Acute ~08/13/16 Fracture of left clavicle Acute Left leg cellulitis Acute Leg ulcer Acute MRSA (methicillin resistant Staphylococcus aureus) Acute 10/07/16
--- NOTE | 2017-03-03 07:13 | GCON ---
[f rep st] CONSULTATION DATE OF CONSULTATION: 03/03/2017 REQUESTING PROVIDER: Dr. Darshan Curry. REASON FOR CONSULTATION: Medical management. CHIEF COMPLAINT: Fall and hip pain. 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 The patient lives alone at home . She has twice daily visits by a caregiver, who came to visit the patient on date of admission and found her on the kitchen floor. The patient cannot recall why she fell. She knows that she came in for leg pain and hip pain. She is overall a poor historian and majority of information is obtained b y reviewing the electronic medical record and discussion with the nurse. The patient had complained of neck and left hip pain, as well as some left-sided chest wall pain. The patient arrived via EMS a s she was not able to get up off the floor unassisted. At time of my interview in the ICU, the patient denies any pain or active discomfort. Again, she paniagua s not recall the events that occurred leading up to her hospital stay and she did not remember that s he fell. REVIEW OF SYSTEMS: Negative except as noted above. The patient denies all systems otherwise. PAST MEDICAL HISTORY: Significant for atrial fibrillation status post pacer, mitral valve replacemen t, on Coumadin with INR goal of 2.5 to 3.5, systolic CHF, chronic venous insufficiency, history of ce llulitis in the left leg in September 2016 with hospitalization. History of C difficile diarrhea in July 2016, remote history of MRSA, clavicle fracture, pelvic fracture, hypothyroidism, hypertension, tal ntia. PAST SURGICAL HISTORY: Significant for pacer placement, mitral valve replacement, bilateral mastecto mies. FAMILY HISTORY: Unable to obtain. SOCIAL HISTORY: Patient lives alone with twice daily caregiver visits. She quit smoking some time a go. Past records indicate patient drinks wine with dinner. She does not do drugs. CODE STATUS: DNR/DNI. Patient with a DNR bracelet, but I am unable to verify at this time. PHYSICAL EXAM: VITAL SIGNS: On arrival to the emergency department, blood pressure 128/86, heart ra te 80, respiratory rate 16, O2 saturation 92% on room air with temperature 36.4. Patient with a few low blood pressures with systolic as low as 87, by the time of interview, blood pressure 102/47, hear t rate 82, respiratory rate 24, O2 sat 100% on 2 L by nasal cannula with a temperature of 37 degrees. GENERAL: No acute distress. Very pleasant, elderly, frail-appearing female is lying quietly in be d, asleep, but wakes easily to name. HEAD: Normocephalic, but patient does have some abrasions to t he bridge of her nose. EYES: Extraocular muscles are intact. Pupils equal, round, and reactive to light bilaterally and symmetric. Lens reflex is appreciated bilaterally, suggestive of cataract repl acement. Lens placement. ENT: Mucous membranes appear moist. No oropharyngeal erythema or exudate s. NECK: Supple. Trachea midline. CV: Regular rate and rhythm in the 60s. There is a systolic m urmur. No click appreciated. RESPIRATORY: Lungs are clear to auscultation bilaterally. Poor inspi ratory effort. No wheezes, rales, or rhonchi appreciated. No cough. ABDOMEN: Distended and soft. Patient complaints of some tenderness to palpation over the suprapubic area. There is a firmness ov er the mid abdomen where the area of tenderness exists. : No Arias in place. Again, the suprapub ic tenderness is noted. EXTREMITIES: Patient with 2 to 3+ pitting edema bilateral lower extremities . She has chronic skin changes to both lower extremities. She has 1+ pedal pulses appreciated bilat erally. NEURO: Cranial nerves grossly intact. Limited secondary to patient's ability to follow ins tructions. Grossly normal. Moves all extremities, but limited in the lower extremities secondary to discomfort. Generalized deconditioning and weakness are appreciated. PSYCH: Patient is oriented t o person and place, but she is not aware of the events leading up to her hospital stay and has limite d recall of all her multiple medical issues. LABORATORY STUDIES: 1. On 03/02/2017, WBCs 11.97, H and H 9.7 and 29.5, decreased from 11.4 and 34.2, and repeated this a.m. is 9.3 and 27.4. 2. Platelet count is decreasing from 161 to 146 to 106. 3. PT/INR is 29.8 and 2.79. 4. Sodium is 140, potassium 4.3, chloride 106, CO2 is 19, anion gap 15, BUN 28, creatinine 0.9, GFR 59, glucose is 124, calcium 8.9. IMAGING STUDIES: 1. EKG reviewed myself shows atrial fibrillation flutter with V paced complexes, V rate in the 70s. QTc 493. 2. Hip x-ray: Probable nondisplaced subcapital left femoral neck fracture, comminuted left pubic fr acture with extension into the left superior pubic ramus. 3. Extremity CT: Probable nondisplaced subcapital femoral neck fracture with osseous assessment patterson ited by osteopenia. Comminuted left pubic fracture extending into the medial aspect of the superior and inferior pubic rami. A nondisplaced transverse sacral fracture, incomplete visualization of a la rge anterior pelvic hematoma measuring up to 9 cm in its maximal visualized extent. Osteopenia limit ing osseous assessment. 4. CT abdomen and pelvis: Imaging and report reviewed myself showing large pelvic hematoma above th e fracture involving the left symphysis and left superior pubic ramus, as well as fracture of the lef t sacrum adjacent to the SI joint. Blood products also extend along the pelvic sidewall bilaterally. The IVC is flat and decompressed within the mid abdomen that can be seen with hypovolemia, large cy st off the lower pole of left kidney. A previous fracture suspected of the left femoral neck not del ineated on these images. 5. Chest x-ray image and report reviewed. Negative for acute findings. Mild peribronchial thickeni ng without focal consolidation, pneumothorax or pleural effusion. Severe degenerative changes presen t in the shoulders. Dextroscoliosis of thoracic spine present with multilevel degenerative changes. Sternotomy wires are intact. Old medial left clavicular fracture and rib fractures are noted. 6. CT head negative for acute intracranial findings. Diffuse cerebral atrophy with periventricular and subcortical low attenuation consistent with chronic microvascular ischemic gliosis. Mild mucous membrane thickening in the sinus with possible maxillary sinusitis. 7. CT cervical spine: No acute posttraumatic abnormality identified. Multilevel degenerative lock es and spondylolisthesis at multi levels. See report. Atherosclerosis is noted in the carotid bifur cations. ASSESSMENT AND PLAN: This is a pleasant 86-year-old female with history of dementia, on Coumadin for atrial fibrillation and artificial mitral valve, who presents following a mechanical fall, now with large hematoma, pelvic fracture, and subcapital femoral neck fracture on the left. Consult is for as sistance with medical management. 1. Atrial fibrillation with history of pacer. The patient has had some episodes of hypotension over the course of the evening. We will hold off on Lasix and monitor fluid status closely. We will con tinue the patient's nebivolol if systolic blood pressures and heart rate are above 160, respectively. 2. Chronic anticoagulation on Coumadin for history of atrial fibrillation and prosthetic mitral valv e. The patient has received vitamin K, TXA. Kcentra was also given. Plan at this time is to monito r patient's hemoglobin and hematocrit and for extension of hemorrhage. Fresh frozen plasma has not b een given with concerns of patient's need for anticoagulation with mitral valve. We will defer to pr imary team and plan to repeat a PT/INR this morning, as well as monitor hemoglobin and hematocrit slime sely. If patient with indication of further bleeding, would recommend proceeding ahead with fresh fr ozen plasma. 3. Intraabdominal hematoma related to trauma as noted above. 4. Acute blood loss anemia. Hemoglobin and hematocrit have declined. Blood pressures are low henrietta l. The patient did receive 1 unit of packed red blood cells on the unit. Again, will need to monito r patient's fluid status closely with history of congestive heart failure. Given patient's current b lood pressures are on the lower end, we will hold off on Lasix, but may be required if additional uni ts of blood or fresh frozen plasma are required. 5. Leukocytosis, likely reactive in setting of acute trauma. The patient without any other complain ts of respiratory issues. 6. Hyperglycemia. The patient without any previous history of diabetes. Will allow also for some p ermissive hyperglycemia in this pleasant elderly frail lady. 7. Benign essential hypertension. Blood pressures were initially elevated, likely related to pain, but now have been on the normal end. Will continue to monitor closely, holding Lasix temporarily unt il SBP is improved and while monitoring patient's anemia. Will plan to continue nebivolol for histor y of atrial fibrillation. 8. Hypothyroidism. Agree with resuming levothyroxine. 9. History of chronic obstructive pulmonary disease. Will make available DuoNeb p.r.n. 10. History of chronic venous insufficiency. Monitor lower extremities. Patient with history of ce llulitis in September. 11. History of methicillin-resistant Staphylococcus aureus on contact precautions. 12. Fluid, electrolyte, nutrition. Patient with maintenance fluid of D5 half-normal saline at 20,00 0. 13. Electrolytes. Will monitor and replace if needed. 14. Nutrition. Patient currently n.p.o. pending reassessment in the morning of her hematoma and mohini luation of her orthopedic issues. 15. Prophylaxis. Patient currently receiving reversal in the setting of acute bleeding. Sequential compression devices are in place. 16. Code status. Will need to clarify the patient's wristband and noted to have a do not resuscitat e. No current orders. 17. Disposition. Patient has been admitted to inpatient status. Anticipate prolonged hospital cour se greater than 2 midnights in the setting of significant hematoma, anemia, pelvic fracture, and seth lity. Transitional Care consult already in place. /[id number]/MODL
--- NOTE | 2017-03-03 08:31 | PDMN ---
Medical Necessity Medical necessity: est los>2mn for pelvic fx with large pelvic hematoma, L femoral neck fx r/t mechanical fall, and acute blood loss anemia; admit to ICU for medical management per hospitalist, AC reversal, ortho consult, PT/OT, monitoring of H&H; comorbid afib and MVR on chronic AC, COPD, advanced age, hx venous insufficiency and MRSA; , per trauma note, order and H&P per hospitalist 03/03/17
[2017-03-03 08:59] LABS: % IMMATURE GRANULYOCYTES 0.8 % (0.0-1.1); ABSOLUTE IMMATURE GRANULOCYTES 0.11 10^3/uL (0.00-0.10); ADD DIFF? NO; ADD MORPH? NO; ADD SCAN? NO; ATYPICAL LYMPHOCYTE FLAG 0 (0-99); FRAGMENT RBC FLAG 0 (0-99); HEMATOCRIT 27.4 % (38.0-47.0); HEMOGLOBIN 9.1 g/dL (12.6-16.3); LEFT SHIFT FLG 0 (0-99); LIPEMIA HEMOLYSIS FLAG 80 (0-99); MEAN CELL HEMOGLOBIN 30.5 pg (27.9-34.1); MEAN CELL HEMOGLOBIN CONCENTR. 33.2 g/dL (32.4-36.7); MEAN CELL VOLUME 91.9 fL (81.5-99.8); MEAN PLATELET VOLUME 9.9 fL (8.7-11.7); PLATELET CLUMPS FLAG 10 (0-99); PLATELET COUNT 109 10^3/uL (150-400); RED BLOOD CELL COUNT 2.98 10^6/uL (4.18-5.33); RED CELL DISTRIBUTION WIDTH 14.7 % (11.5-15.2)
[2017-03-03] MEDS ORDERED: VALSARTAN 80 MG TAB PO SCH (09:00)
[2017-03-03] MEDS ORDERED: SPIRONOLACTONE 25 MG TAB PO SCH (09:00)
[2017-03-03] MEDS: MULTIVITAMINS 1 EACH TAB PO SCH (09:16)
--- NOTE | 2017-03-03 09:40 | ASMTCMCOM ---
CM Note CM Note Notes: 86 year old female admitted after a fall and pelvic/clavical fx's. She has a hx of dementia, hypothyroid, HTN, CHF, [id number]-shvveqibesqhhsl, COPD, MVR. She lives alone and has caregivers coming 2x/day. Patient will need SNF on discharge. DaughterTatianna is her MPOA. Date Signed: 03/03/2017 09:39 AM Electronically Signed By:Aydee Mcrae LCSW
--- NOTE | 2017-03-03 10:41 | HOSPPROG ---
Hospitalist Progress Note Assessment/Plan: # fall - unclear if mechanical or syncope - will interrogate ppm and recheck echo - unlikely further w/u # a-fib/ppm/MVR - INR reversed for large pelvic hematoma # pelvic hematoma/pubic ramus fx - INR reversed # sacral fx # ?subcapital fx - per ortho, at least non-op, possibly artifact # ABLA - transfused 1U PRBC # MARGO - hemodynamic - hold arb, diuretics - recheck tomorrow after transfusion # sCHF - euvolemic - cont bystolic, hold arb, diuretics # dementia - lives at home with caregivers; short term memory impaired # COPD/chronic resp failure - stable # 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 Subjective: does not remember the fall; some pain in abd/pelvis Objective: Vital Signs Temp Pulse Resp BP Pulse Ox 36.8 C 79 22 H 106/88 H 100 03/03/17 10:00 03/03/17 10:00 03/03/17 10:00 03/03/17 10:00 03/03/17 10:00 Laboratory Results 03/03/17 08:45 03/03/17 05:30 03/02/17 03/03/17 03/04/17 05:59 05:59 05:59 Intake Total 2421 Output Total 200 Balance 2221 PT 16.0 SEC (12.0-15.0) H D 03/03/17 05:35 INR 1.28 (0.83-1.16) H 03/03/17 05:35 35 minutes direct face to face patient care time from 9:55-10:30 - Physical Exam Constitutional: not in pain Cardiovascular: regular rate and rhythym, systolic murmur, No irregularly irregular, No diastolic murmur Respiratory: no respiratory distress, no rales or rhonchi, clear to auscultation Gastrointestinal: normoactive bowel sounds, soft, non-tender abdomen, no palpable masses ICD10 Worksheet Patient Problems: Problems Problem Status Onset Pelvic fracture Acute Pelvic hematoma Acute C. difficile diarrhea Acute ~08/13/16 Fracture of left clavicle Acute Left leg cellulitis Acute Leg ulcer Acute MRSA (methicillin resistant Staphylococcus aureus) Acute 10/07/16
--- NOTE | 2017-03-03 12:34 | GCON ---
[f rep st] CONSULTATION ORTHOPEDIC CONSULTATION DATE OF CONSULTATION: 03/03/2017 REFERRING PHYSICIAN: Jaden Curry MD REASON FOR CONSULTATION: Fall with pelvic fractures and questionable hip fracture. HISTORY OF PRESENT ILLNESS: This is an 86-year-old female with past medical history of dementia, hyp othyroidism, hypertension, atrial fibrillation with a pacemaker, history of mitral valve replacement on chronic anticoagulation with Coumadin, history of systolic CHF, chronic venous insufficiency, COPD , MRSA, C difficile. She is at home. Lives alone. Had a mechanical fall yesterday afternoon. Her caregiver found her on the floor. The patient does not recall how or why she fell. She does not rem ember if she lost consciousness or not. She was unable to ambulate; however, after the fall. She is overall a poor historian, with the majority of information being obtained through the EMR. The ethan ent complains mostly of anterior pelvic/hip pain. She was seen in the emergency department, and diag nosed with superior and inferior left-sided pubic rami fractures, as well as transverse sacral fractu re, and question of a left subcapital femoral neck fracture. She also developed a moderate to large sized pelvic hematoma from her pelvic fractures, and was transferred to the ICU for monitoring with F FP [employer] solutions architect. REVIEW OF SYSTEMS: As per HPI. PAST MEDICAL HISTORY: As per HPI. PAST SURGICAL HISTORY: As per HPI, as well as bilateral mastectomies. FAMILY HISTORY: Irrelevant to current injuries. SOCIAL HISTORY: Former smoker. Lives alone with twice daily caregiver. Denies drug use. CODE STATUS: The patient is a DNR/DNI. PHYSICAL EXAMINATION: VITAL SIGNS: Stable. GENERAL: She is awake, in no acute distress, very plea simon, frail appearing. HEENT: Does not appear to have any head trauma, with the exception of a mild abrasion over the bridge of her nose. Eyes EOMI. Sclerae are white. LUNGS: Breathing is easy and nonlabored. ABDOMEN: Distended but soft. Complains of some tenderness to palpation over the supra pubic area. EXTREMITIES: The patient has mild pitting edema over bilateral lower extremities. No s kin abrasions or lacerations. She has no pain with log roll of her left lower extremity. No tendern ess to palpation over the greater trochanter or anterior hip joint. There is tenderness to palpation over the superior pubis. She has sensation intact to light touch from L3-S1. Motor intact to EHL, FHL, tibialis anterior and gastroc soleus complex. LABORATORY STUDIES: Reveal WBC 11.9, hemoglobin 9.7, decreased from 11.4. Platelet count has decrea sed from 161-106. INR is 2.79. IMAGING STUDIES: CT scan of the left hip and pelvis reveals a superior and inferior comminuted and m ildly displaced rami fractures, as well as a transverse sacral fracture. There was question of a sub capital nondisplaced femoral neck fracture; however, it is my interpretation that this is not a true fracture. Additional radiologist reads also confirm that this is not a probable subcapital femoral n radha fracture. ASSESSMENT AND PLAN: An 86-year-old female with multiple medical problems on Coumadin with acute sup erior and inferior pelvic rami fractures and transverse sacral fracture. I do not believe that the s uspected subcapital femoral neck fracture is real based off my interpretation of the imaging studies, as well as her physical examination. I discussed the treatment plan with the patient that she will be able to partially weight bear with assistance and a walker up to 50%, and that it will be painful to weight bear due to the pelvic fractures. I did state that there was a chance that the questionabl e femoral neck fracture was real, and that could displace, and would require surgery if it did, and s he understood and agreed. However, again, my suspicion for a subcapital femoral neck fracture is low based on secondary radiologist read, my personal read of the CT scan and x-rays, as well as physical examination. At this point, she does not need orthopedic surgery for her hip or her pelvis fracture s. She can be up as tolerated with Physical Therapy, and I will see her in the office in 2-3 weeks f or reevaluation of her pelvic fractures. The patient understands and agrees. Questions were laura stewart /[id number]/MODL
--- NOTE | 2017-03-03 14:18 | WOCRNPDOC ---
WOCRN Advanced Assessment Note - Skin Integrity Problem, Advanced Assess Right Elbow Abrasion Dressing Type: Allevyn Life Skin Integrity Problem Comment: Category 3 skin tear. Bhumi Gonzalez will dress. Left Elbow Dressing Type: Tegaderm Film Integumentary Issue Intervention: Dressing Removed Skin Integrity Problem Comment: Skin tear category 2b. Removed tegaderm for skin tear policy dressing. Bilateral Lower Leg Heather Wound Tissue: Hemosiderin Staining, Venous Dermatitis, Shiny, Thin, Varicose Veins, Scarred Pulse Location & Description: 2+ DP Extremity Temperature: Warm Skin Integrity Problem Comment: Patient with venous dermatitis. No open wounds at this time. Patient has compression socks at home. Will supply Spandigrip size D here for medium compression. Bilateral calves measure approx 28 cm. Lisa LINDSEY in room for care. Wound care will sign off.
--- NOTE | 2017-03-03 15:28 | ASMTCMCOM ---
CM Note CM Note Notes: This CM was unable to contact patient's MPOA, daughter Tatianna via phone#'s on Facesheet. Contacted another daugther, Jyotsna [phone] and soke to her. Talked about patient's discharge needs given fall and fx's. Jyotsna reports that patient has [facility] at home at this time but would need to go to a SNF Rehab on discharge. [id number] but knew about [facility] and asked that I contact Ginna, , their [facility] RN for other suggestions. Left a message for Ginna. Asked Jyotsna for Tatianna's phone#s [phone] ; [phone] . Left a message on her phone. Date Signed: 03/03/2017 03:27 PM Electronically Signed By:Aydee Mcrae LCSW
--- NOTE | 2017-03-03 15:55 | GCON ---
[f rep st] CONSULTATION PULMONARY/CRITICAL CARE CONSULTATION DATE OF CONSULTATION: 03/03/2017 REFERRING PHYSICIAN: Jaden Curry MD REASON FOR REFERRAL: Anemia and hypotension. HISTORY: The patient is an 86-year-old woman with a history of dementia and atrial fibrillation, status post mitral valve replacement, on anticoagulation with Coumadin, who was found down yesterday by her caregiver, who visits twice daily. She cannot recall how or why she fell. She had leg and hip pain when she came in and was found to have a femoral neck fracture with a comminuted left pelvic fracture involving the left pubic ramus. She has been admitted for observation and pain control. She currently reports that her pain control is quite good, with no pain as long as she is lying still. She had just taken a pain pill. She denies any nausea or vomiting. PAST MEDICAL HISTORY: 1. Atrial fibrillation, status post pacemaker placement. 2. Mitral valve replacement. 3. Systolic congestive heart failure. 4. History of dementia. 5. History of C difficile diarrhea in July 2016. MEDICATIONS: Medications at time of admission include warfarin, sertraline, valsartan, spironolactone, nebivolol, levothyroxine, furosemide, and hydroxyzine. ALLERGIES: EVANGELINA inhibitors, statins, and codeine. SOCIAL HISTORY: The patient lives at home with caregiver visits. She has a past history of smoking and she drinks wine infrequently. FAMILY HISTORY: Unremarkable. REVIEW OF SYSTEMS: A 10-point review of systems adds nothing to the history of present illness. PHYSICAL EXAMINATION: GENERAL: The patient is awake, alert, and in no acute distress. She is oriented to person. VITAL SIGNS: Her blood pressure is 120/ 58 with a heart rate of 76. She is afebrile. Oxygen saturations are 94% on 1 L. HEENT: Normocephalic and atraumatic. No icterus. NECK: No JVD. Trachea is midline. CHEST: Clear to auscultation. CARDIAC: Regular rate and rhythm without murmur. ABDOMEN: Soft. Her abdomen is distended. Bowel sounds are hypoactive. EXTREMITIES: No clubbing, cyanosis, or edema. NEUROLOGIC: The patient is oriented x1. She is able to move her upper extremities symmetrically , but has some weakness in trying to move her lower extremities that is related to pain. LABORATORY: Hemoglobin is 9.1, down from 11.4 at admission. An INR is 1.3, down from 2.8. Chemistry group is remarkable for creatinine of 1.2, up from 0.9. Glucose is 150. A chest x-ray shows no acute findings. Images reviewed. A CT scan of the abdomen shows left pubic symphysis and superior pubic ramus fracture. There is a large hematoma measuring 15 x 10 cm anteriorly. Images reviewed. ASSESSMENT: 1. Status post traumatic pelvic fracture related to a fall. The patient is currently being managed nonsurgically, and pain control is adequate. 2. Anemia. This is likely due to a large pelvic hematoma. Her hemoglobin has fallen, but is now fairly stable compared to earlier this morning. 3. Hypotension. The patient had some hypotension last night, but her blood pressure is now improved. 4. Anticoagulation. The patient was fully anticoagulated on arrival, but was treated with Kcentra, vitamin K, and tranexamic acid. This has normalized her INR and she is not having clinical signs of significant active bleeding. 5. History of atrial fibrillation with mitral valve replacement, currently off anticoagulation. Her rhythm is primarily paced at this point. 6. Acute kidney injury. The patient's creatinine has risen, and given her fairly low muscle mass probably has significant reduction in creatinine clearance. RECOMMENDATIONS: 1. Follow hemoglobin. 2. Hold ARB and Lasix. She has been given her spironolactone this morning, but this is a fairly low dose and likely will not significantly affect renal function. Her INR will be followed, but I anticipate that this will remain low until her anticoagulation is restarted, hopefully in a few days. /[id number]/MODL MTDD
--- NOTE | 2017-03-03 16:32 | ECHO ---
[email or web address] [address] [address] Main: [phone] Fax: Transthoracic Echocardiogram Name: EMEKA DURON MR#: [id number] Study Date: 03/03/2017 Study Time: 11:00 AM Date of : 1930 Age: 86 year(s) Height: 167.6 cm (66 in.) Weight: 61.24 kg (135 lb.) BSA: 1.69 m2 Gender: Female Examination: Echo Indication: Cardiac: syncope Image Quality: Technically Difficult Contrast: Requested by: Rich Garcia BP: 106 mmHg/88 mmHg Heart Rate: Rhythm: Pacemaker rhythm Indication: Cardiac: syncope Procedure Staff Inside Wireman: Wilda Marie Reading Physician: Jaden Dugan Requesting Provider: Conclusions: Mild concentric LV hypertrophy. Normal global systolic LV function. Cannot rule out wall motion abnormalities due to poor endocardial definition. There is a pacemaker lead noted in the right ventricle. The left atrium is moderately dilated. The right atrium is mildly dilated. Prosthetic mitral valve gradients are within normal limits. Trivial MV prosthesis regurgitation. Severe tricuspid regurgitation is present. Right ventricular systolic pressure measures 51mmHg. Upper limits of normal for ascending aorta size. Measurements: Chambers Valvular Assessment AV/MV Valvular Assessment TV/PV Normal Normal Normal Name Value Range Name Value Range Name Value Range Ao Lesli (2D): 3.1 cm (1.4 cm-2.6 AV Vmax: 1.16 m/s (1 m/s-1.7 TV Vmax: 1.17 m/s (0.3 m/s-0.7 cm) m/s) m/s) LVOTd 2.0 cm 2.0 cm mm AV maxP mmHg ( - ) TV Vmean: 0.80 m/s ( - ) LVEF (MOD4): 55 % (>=55 %) LVOT Vmax: 0.83 m/s (0.7 m/s-1.1 TV PGmax: 5 mmHg ( - ) RVDd(2D): 3.7 cm (1.9 cm-3.8 m/s) TV PGmean: 3 mmHg ( - ) cmmm) NURY (Vmax): 2.2 cm2 ( - ) TV VTI: 24.50 cm ( - ) MV meanP mmHg ( - ) TR Vmax: 3.39 mm/s ( - ) MV PHT: 0.067 s ( - ) TR PGmax: 46 mmHg ( - ) MVA (PHT): 3.3 s ( - ) syst. PAP: 51 mmHg ( - ) PV Vmax: 0.88 m/s (0.6 m/s-0.9 m/s) PV PGmax: 3 mmHg ( - ) Patient: EMEKA DURON Study Date: 03/03/2017 Page 1 of 2 11:00 AM Continued Measurements: Chambers Valvular Assessment AV/MV Valvular Assessment TV/PV Name Value Name Value Name Value LADs Lon.3 cm MV VTI: 33.50 cm CVP (est.): 5 mmHg LA Area: 20.9 cm2 Additional Vessels Name Value Ao Ascendin.9 cm Findings: Left Ventricle: Normal size left ventricle. Mild concentric LV hypertrophy. Normal global systolic LV function. EF is 55 %. Cannot rule out wall motion abnormalities due to poor endocardial definition. Unable to assess diastolic dysfunction. Right Ventricle: Upper normal size right ventricle. Mildly reduced RV function. There is a pacemaker lead noted in the right ventricle. Left Atrium: The left atrium is moderately dilated. Right Atrium: The right atrium is mildly dilated. There is no pacemaker lead noted in the right atrium. 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 Prosthetic mitral valve gradients are within normal limits. Trivial MV prosthesis regurgitation. Aortic Valve: The aortic valve is tri-leaflet. Aortic sclerosis is present. There is no aortic valve regurgitation. No aortic valve stenosis is present. Tricuspid Valve: There is mild thickening of the tricuspid valve leaflets. Severe tricuspid regurgitation is present. Right ventricular systolic pressure measures 51mmHg. The pulmonary artery pressure is moderately increased. Aorta: Normal size aortic root measuring 3.1 cm. Upper limits of normal for ascending aorta size. IVC: The IVC is not visualized. Pericardium: No pericardial effusion. (No Signature Object) Patient: EMEKA DURON Study Date: 03/03/2017 Page 2 of 2 11:00 AM [id number]
[2017-03-03 17:17] LABS: % IMMATURE GRANULYOCYTES 0.8 % (0.0-1.1); ABSOLUTE IMMATURE GRANULOCYTES 0.11 10^3/uL (0.00-0.10); ABSOLUTE NRBC COUNT 0.03 10^3/uL (0-0.01); ADD DIFF? NO; ADD MORPH? NO; ADD SCAN? NO; ATYPICAL LYMPHOCYTE FLAG 0 (0-99); FRAGMENT RBC FLAG 0 (0-99); HEMATOCRIT 27.5 % (38.0-47.0); HEMOGLOBIN 9.1 g/dL (12.6-16.3); LEFT SHIFT FLG 0 (0-99); LIPEMIA HEMOLYSIS FLAG 80 (0-99); MEAN CELL HEMOGLOBIN 30.4 pg (27.9-34.1); MEAN CELL HEMOGLOBIN CONCENTR. 33.1 g/dL (32.4-36.7); MEAN PLATELET VOLUME 10.1 fL (8.7-11.7); NRBC-AUTO% 0.2 % (0.0-0.2); PLATELET CLUMPS FLAG 0 (0-99); PLATELET COUNT 101 10^3/uL (150-400); RED BLOOD CELL COUNT 2.99 10^6/uL (4.18-5.33); RED CELL DISTRIBUTION WIDTH 14.8 % (11.5-15.2)
--- NOTE | 2017-03-03 18:16 | TRAUMAPN ---
Assessment/Plan: 86 Y F found down by chemical checker. hx dementia, afib, mvr, on coumadin. +L pelvic fracture involving pubic ramus. +pelvic hematoma. Query femoral neck fracture, thought not to be real. Seen and examined with Dr. Curry and discussed on ICU rounds this am. Appreciate ortho input. 50%weight bearing LLE. H&H stable. Received pRBCs. PT/OT. Exam per Dr. Curry. Objective: Vital Signs Temp Pulse Resp BP Pulse Ox 36.8 C 77 22 H 94/48 L 99 03/03/17 16:00 03/03/17 16:00 03/03/17 16:00 03/03/17 16:00 03/03/17 16:00 Laboratory Results 03/03/17 17:00 03/03/17 05:30 03/02/17 03/03/17 03/04/17 05:59 05:59 05:59 Intake Total 2421 1610 Output Total 200 550 Balance 2221 1060 PT 16.0 SEC (12.0-15.0) H D 03/03/17 05:35 INR 1.28 (0.83-1.16) H 03/03/17 05:35
[2017-03-03] MEDS: FLUOCINONIDE 0.05% 15 GM CREAM TP SCH (20:58)
[2017-03-03] MEDS: SERTRALINE HCL 25 MG TAB PO SCH (20:58)
[2017-03-03] MEDS: hydrOXYzine HCL 10 MG TAB PO SCH (20:58)
[2017-03-03] MEDS: CLOBETASOL 0.05% 15 GM CRTUBE TP SCH (20:58)
[2017-03-04 04:24] LABS: % IMMATURE GRANULYOCYTES 0.5 % (0.0-1.1); ABSOLUTE IMMATURE GRANULOCYTES 0.05 10^3/uL (0.00-0.10); ABSOLUTE NRBC COUNT 0.02 10^3/uL (0-0.01); ADD DIFF? NO; ADD MORPH? NO; ADD SCAN? NO; ATYPICAL LYMPHOCYTE FLAG 0 (0-99); FRAGMENT RBC FLAG 0 (0-99); HEMATOCRIT 25.2 % (38.0-47.0); HEMOGLOBIN 8.4 g/dL (12.6-16.3); LEFT SHIFT FLG 0 (0-99); LIPEMIA HEMOLYSIS FLAG 80 (0-99); MEAN CELL HEMOGLOBIN 30.8 pg (27.9-34.1); MEAN CELL HEMOGLOBIN CONCENTR. 33.3 g/dL (32.4-36.7); MEAN CELL VOLUME 92.3 fL (81.5-99.8); MEAN PLATELET VOLUME 10.2 fL (8.7-11.7); NRBC-AUTO% 0.2 % (0.0-0.2); PLATELET CLUMPS FLAG 0 (0-99); PLATELET COUNT 97 10^3/uL (150-400); RED BLOOD CELL COUNT 2.73 10^6/uL (4.18-5.33)
[2017-03-04 04:39] LABS: ANION GAP 6 mEq/L (8-16); CALCIUM 7.7 mg/dL (8.5-10.4); CARBON DIOXIDE 24 mEq/l (22-31); CHLORIDE 107 mEq/L (97-110); CREATININE 0.9 mg/dL (0.6-1.0); GLOMERULAR FILTRATION RATE 59; GLUCOSE 116 mg/dL (70-100); SODIUM 137 mEq/L (134-144)
[2017-03-04 04:40] LABS: INR 1.12 (0.83-1.16); PROTIME(PATIENT) 14.3 SEC (12.0-15.0)
[2017-03-04] MEDS: LEVOTHYROXINE 88 MCG TAB PO SCH (06:24)
--- NOTE | 2017-03-04 10:42 | TRAUMAPN ---
Assessment/Plan: PAD#2 Assessment: Doing well. Plan: Will follow Hct and urine output. Will restart anticoag. Subjective: " when can I go home?" Objective: Vital Signs Temp Pulse Resp BP Pulse Ox 36.8 C 79 16 127/59 H 99 03/04/17 08:00 03/04/17 08:00 03/04/17 08:00 03/04/17 08:00 03/04/17 08:00 Laboratory Results 03/04/17 04:10 03/04/17 04:10 03/03/17 03/04/17 03/05/17 05:59 05:59 05:59 Intake Total 2421 2660 Output Total 200 1450 Balance 2221 1210 PT 14.3 SEC (12.0-15.0) 03/04/17 04:10 INR 1.12 (0.83-1.16) 03/04/17 04:10 - C-Spine Clearance Cervical Spine Cleared: Yes Physical Exam - Physical Exam General Appearance: WD/WN, alert, no apparent distress Neck: non-tender, full range of motion, supple Respiratory: chest non-tender, lungs clear, normal breath sounds Cardiac/Chest: regular rate, rhythm (Paced) Abdomen: normal bowel sounds, non-tender, soft Pelvic Exam: deferred Rectal: deferred Back: Normal inspection Skin: normal color, warm/dry Neuro/Psych: no motor/sensory deficits, alert, normal mood/affect Time Spent w/Patient (minutes): 25
[2017-03-04] MEDS: ENOXAPARIN 30 MG/0.3 ML SYR SC SCH ×2 (11:00→20:54)
[2017-03-04] MEDS: MULTIVITAMINS 1 EACH TAB PO SCH (12:16)
[2017-03-04] MEDS: NEBIVOLOL HCL 5 MG TAB PO SCH (12:16)
[2017-03-04] MEDS: FUROSEMIDE 20 MG TAB PO SCH (12:16)
--- NOTE | 2017-03-04 13:41 | PDINTPN ---
Superintendent Colliery Progress Note Assessment/Plan: Assessment: S/P Pelvic Fracture: Pain control improved a bit, on PO meds. Anemia: Due to acute blood loss on top of mild chronic anemia. Down a bit this morning after being stable for 24 hours. BP, urine output OK. Likely due to bleeding from hematoma, which has likely slowed/stopped. Pelvic hematoma: Large, due to fracture and anticoagulation, which is now corrected. Contributes to anemia S/P MVR and AF: On chronic anticoagulation, now held. Plan: Resume Furosemide. Resume prophylactic dose Lovenox and Coumadin at regular home dose, and follow H/H. OK to Tx to M/S. Discharge planning, will likely need SNF stay. 03/04/17 13:43 Subjective: Pain is better but still hurts quite a bit to move. Appetite fair. + BM Objective: Vital Signs Temp Pulse Resp BP Pulse Ox 36.8 C 79 17 100/57 L 100 03/04/17 08:00 03/04/17 12:00 03/04/17 12:00 03/04/17 12:00 03/04/17 12:00 Laboratory Results 03/04/17 04:10 03/04/17 04:10 03/03/17 03/04/17 03/05/17 05:59 05:59 05:59 Intake Total 2421 2660 Output Total 200 1450 Balance 2221 1210 PT 14.3 SEC (12.0-15.0) 03/04/17 04:10 INR 1.12 (0.83-1.16) 03/04/17 04:10 Physical Exam - Physical Exam General Appearance: alert, no apparent distress EENT: normal ENT inspection Neck: normal inspection Respiratory: lungs clear, normal breath sounds Cardiac/Chest: regular rate, rhythm, No edema Abdomen: normal bowel sounds, distended, No non-tender (mildly tender) Skin: normal color, warm/dry Extremities: normal inspection Neuro/Psych: alert, normal mood/affect, No oriented x 3 ICD10 Worksheet Patient Problems: Problems Problem Status Onset Pelvic fracture Acute Pelvic hematoma Acute C. difficile diarrhea Acute ~08/13/16 Fracture of left clavicle Acute Left leg cellulitis Acute Leg ulcer Acute MRSA (methicillin resistant Staphylococcus aureus) Acute 10/07/16
--- NOTE | 2017-03-04 15:03 | ASMTCMCOM ---
CM Note CM Note Notes: Spoke to [facility]. They have no female beds this week. [facility] here to assess patient and would "love" to admit her. Neha is reviewing the referral. Contacted Ginna [phone] and left her a message regarding the [facility] facilities. Date Signed: 03/04/2017 03:02 PM Electronically Signed By:Aydee Mcrae LCSW
[2017-03-04] MEDS: HYDROCODONE/APAP 5/325 TAB PO PRN ×2 (15:33→20:55)
--- NOTE | 2017-03-04 16:35 | HOSPPROG ---
Hospitalist Progress Note Assessment/Plan: # pelvic hematoma/pubic ramus fx, capital femoral fx and sacral fx- INR reversed by trauma surgery on admit extremity CT (personally reviewed and interpreted) femoral, pubic and sacral fractures - non-operative - cont PT/OT - cont pain meds - restarting warfarin today # a-fib/ppm/MVR - INR reversed for large pelvic hematoma- rates paced in 70's - restarting anticoag # anemia secondary to acute blood loss- status post packed red blood cell transfusion- H&H 12/20 Oxygen saturations 99% on 2 L - monitor H&H # MARGO - hemodynamic - creatinine 1.2-> 0.9 after transfusion - restart arb, diuretics - if renal function remains normal # sCHF - euvolemic- cont bystolic, restart arb, diuretics as above if BP and renal function allow # dementia - lives at home with caregivers; short term memory impaired # COPD/chronic resp failure - stable # 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 Fernandez- we will restart warfarin today Subjective: pain Objective: Vital Signs Temp Pulse Resp BP Pulse Ox 36.8 C 79 17 100/57 L 100 03/04/17 08:00 03/04/17 12:00 03/04/17 12:00 03/04/17 12:00 03/04/17 12:00 Laboratory Results 03/04/17 04:10 03/04/17 04:10 03/03/17 03/04/17 03/05/17 05:59 05:59 05:59 Intake Total 2421 2660 Output Total 200 1450 Balance 2221 1210 PT 14.3 SEC (12.0-15.0) 03/04/17 04:10 INR 1.12 (0.83-1.16) 03/04/17 04:10 - Physical Exam Constitutional: other (thin) Eyes: anicteric sclera Ears, Nose, Mouth, Throat: moist mucous membranes Cardiovascular: regular rate and rhythym, systolic murmur Respiratory: no respiratory distress Gastrointestinal: normoactive bowel sounds Genitourinary: no bladder fullness Skin: warm, normal color Musculoskeletal: No asymmetric calves Neurologic: AAOx3 Psychiatric: interacting appropriately Lymph, Heme, Immunologic: no cervical LAD ICD10 Worksheet Patient Problems: Problems Problem Status Onset Pelvic fracture Acute Pelvic hematoma Acute C. difficile diarrhea Acute ~08/13/16 Fracture of left clavicle Acute Left leg cellulitis Acute Leg ulcer Acute MRSA (methicillin resistant Staphylococcus aureus) Acute 10/07/16
[2017-03-04] MEDS: SERTRALINE HCL 25 MG TAB PO SCH (20:54)
[2017-03-04] MEDS: WARFARIN SODIUM 2 MG TAB PO SCH (20:54)
[2017-03-04] MEDS: FLUOCINONIDE 0.05% 15 GM CREAM TP SCH (20:55)
[2017-03-04] MEDS: CLOBETASOL 0.05% 15 GM CRTUBE TP SCH (20:55)
[2017-03-05 05:19] LABS: INR 1.13 (0.83-1.16); PROTIME(PATIENT) 14.4 SEC (12.0-15.0)
[2017-03-05 05:20] LABS: % IMMATURE GRANULYOCYTES 0.7 % (0.0-1.1); ABSOLUTE IMMATURE GRANULOCYTES 0.06 10^3/uL (0.00-0.10); ADD DIFF? NO; ADD MORPH? NO; ADD SCAN? NO; ATYPICAL LYMPHOCYTE FLAG 0 (0-99); FRAGMENT RBC FLAG 0 (0-99); HEMATOCRIT 26.7 % (38.0-47.0); HEMOGLOBIN 8.6 g/dL (12.6-16.3); LEFT SHIFT FLG 0 (0-99); LIPEMIA HEMOLYSIS FLAG 80 (0-99); MEAN CELL HEMOGLOBIN 30.1 pg (27.9-34.1); MEAN CELL HEMOGLOBIN CONCENTR. 32.2 g/dL (32.4-36.7); MEAN CELL VOLUME 93.4 fL (81.5-99.8); MEAN PLATELET VOLUME 9.8 fL (8.7-11.7); PLATELET CLUMPS FLAG 0 (0-99); PLATELET COUNT 109 10^3/uL (150-400); RED BLOOD CELL COUNT 2.86 10^6/uL (4.18-5.33)
[2017-03-05] MEDS: HYDROCODONE/APAP 5/325 TAB PO PRN ×3 (09:34→18:18)
[2017-03-05] MEDS: NEBIVOLOL HCL 5 MG TAB PO SCH (09:34)
[2017-03-05] MEDS: FUROSEMIDE 20 MG TAB PO SCH (09:35)
[2017-03-05] MEDS: LEVOTHYROXINE 88 MCG TAB PO SCH (09:35)
[2017-03-05] MEDS: ENOXAPARIN 30 MG/0.3 ML SYR SC SCH ×2 (09:35→22:23)
[2017-03-05] MEDS: MULTIVITAMINS 1 EACH TAB PO SCH (09:35)
[2017-03-05] MEDS ORDERED: MAGNESIUM CITRATE 300 ML BOTTLE PO ONE (14:39)
--- NOTE | 2017-03-05 14:43 | TRAUMAPN ---
Assessment/Plan: PAD#2 Assessment: Doing well. Plan: Will follow Hct and urine output. Will restart anticoag. PAD#3 03/05/2017 Assessment: No stool or flatus Re-anticoagulation in progress HCT stable Plan: Will add mag citrate Continue re-anticoag Objective: Vital Signs Temp Pulse Resp BP Pulse Ox 37.0 C 75 20 128/68 H 92 03/05/17 08:00 03/05/17 09:34 03/05/17 08:00 03/05/17 09:34 03/05/17 08:00 Laboratory Results 03/05/17 05:00 03/04/17 04:10 03/04/17 03/05/17 03/06/17 05:59 05:59 05:59 Intake Total 2660 1285 Output Total 1450 350 Balance 1210 935 PT 14.4 SEC (12.0-15.0) 03/05/17 05:00 INR 1.13 (0.83-1.16) 03/05/17 05:00 - C-Spine Clearance Cervical Spine Cleared: Yes Physical Exam - Physical Exam General Appearance: WD/WN, alert, no apparent distress Respiratory: chest non-tender, lungs clear, normal breath sounds Cardiac/Chest: regular rate, rhythm (Pacer) Abdomen: normal bowel sounds, non-tender, soft, distended Pelvic Exam: deferred Rectal: deferred Back: Normal inspection Skin: normal color Neuro/Psych: no motor/sensory deficits, alert, normal mood/affect, oriented x 3 Time Spent w/Patient (minutes): 15
--- NOTE | 2017-03-05 15:39 | ASMTCMCOM ---
CM Note CM Note Notes: Both PT/OT are recommending SNF placement as of today.[facility] has accepted. Patient not available to discuss. Will Check with her and her family in the morning. CM will follow. Date Signed: 03/05/2017 03:39 PM Electronically Signed By:Rachelle Marcos LCSW
--- NOTE | 2017-03-05 16:03 | HOSPPROG ---
Hospitalist Progress Note Assessment/Plan: # pelvic hematoma/pubic ramus fx, capital femoral fx and sacral fx- INR reversed by trauma surgery on admit extremity CT femoral, pubic and sacral fractures - non-operative - cont PT/OT - cont pain meds - restarting warfarin today # a-fib/ppm/MVR - INR reversed for large pelvic hematoma- rates paced in 70's TELE (personally reviewed and interpreted) paced in 's - restarting anticoag # anemia secondary to acute blood loss- status post packed red blood cell transfusion- H&H 12/20-> 12/21 Oxygen saturations 99% on 2 L - monitor H&H # MARGO - hemodynamic - creatinine 1.2-> 0.9 after transfusion - restart arb, diuretics - if renal function remains normal # sCHF - euvolemic- cont bystolic, restart arb, diuretics as above if BP and renal function allow # dementia - lives at home with caregivers; short term memory impaired # COPD/chronic resp failure - stable # 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 # diet cardiac # disposition> 2 midnights patient needs close monitoring with re-initiation of anticoagulation I have discussed the case with RN - stable so far with anticoagulation restart - continue Subjective: pain still with standing Objective: Vital Signs Temp Pulse Resp BP Pulse Ox 37.0 C 75 20 128/68 H 92 03/05/17 08:00 03/05/17 09:34 03/05/17 08:00 03/05/17 09:34 03/05/17 08:00 Laboratory Results 03/05/17 05:00 03/04/17 04:10 03/04/17 03/05/17 03/06/17 05:59 05:59 05:59 Intake Total 2660 1285 Output Total 1450 350 Balance 1210 935 PT 14.4 SEC (12.0-15.0) 03/05/17 05:00 INR 1.13 (0.83-1.16) 03/05/17 05:00 - Physical Exam Constitutional: no apparent distress Eyes: anicteric sclera Ears, Nose, Mouth, Throat: moist mucous membranes Cardiovascular: regular rate and rhythym, systolic murmur Respiratory: no respiratory distress, no rales or rhonchi Gastrointestinal: normoactive bowel sounds Genitourinary: no bladder fullness Skin: warm Musculoskeletal: No asymmetric calves Neurologic: AAOx3 Psychiatric: interacting appropriately Lymph, Heme, Immunologic: no cervical LAD ICD10 Worksheet Patient Problems: Problems Problem Status Onset Pelvic fracture Acute Pelvic hematoma Acute C. difficile diarrhea Acute ~08/13/16 Fracture of left clavicle Acute Left leg cellulitis Acute Leg ulcer Acute MRSA (methicillin resistant Staphylococcus aureus) Acute 10/07/16
[2017-03-05] MEDS: SERTRALINE HCL 25 MG TAB PO SCH (22:23)
[2017-03-05] MEDS: WARFARIN SODIUM 2 MG TAB PO SCH (22:23)
[2017-03-05] MEDS: CLOBETASOL 0.05% 15 GM CRTUBE TP SCH (22:24)
[2017-03-05] MEDS: FLUOCINONIDE 0.05% 15 GM CREAM TP SCH (22:24)
[2017-03-06] MEDS: HYDROCODONE/APAP 5/325 TAB PO PRN ×5 (01:28→23:30)
[2017-03-06 05:27] LABS: % IMMATURE GRANULYOCYTES 0.4 % (0.0-1.1); ABSOLUTE IMMATURE GRANULOCYTES 0.04 10^3/uL (0.00-0.10); ADD DIFF? NO; ADD MORPH? NO; ADD SCAN? NO; ATYPICAL LYMPHOCYTE FLAG 0 (0-99); FRAGMENT RBC FLAG 0 (0-99); HEMATOCRIT 27.6 % (38.0-47.0); HEMOGLOBIN 9.1 g/dL (12.6-16.3); LEFT SHIFT FLG 0 (0-99); LIPEMIA HEMOLYSIS FLAG 80 (0-99); MEAN CELL HEMOGLOBIN 30.5 pg (27.9-34.1); MEAN CELL VOLUME 92.6 fL (81.5-99.8); MEAN PLATELET VOLUME 9.9 fL (8.7-11.7); PLATELET CLUMPS FLAG 0 (0-99); PLATELET COUNT 134 10^3/uL (150-400); RED BLOOD CELL COUNT 2.98 10^6/uL (4.18-5.33); RED CELL DISTRIBUTION WIDTH 15.2 % (11.5-15.2)
[2017-03-06 05:36] LABS: INR 1.2 (0.83-1.16); PROTIME(PATIENT) 15.2 SEC (12.0-15.0)
[2017-03-06 05:45] LABS: ANION GAP 8 mEq/L (8-16); CALCIUM 8.3 mg/dL (8.5-10.4); CARBON DIOXIDE 27 mEq/l (22-31); CHLORIDE 104 mEq/L (97-110); CREATININE 0.9 mg/dL (0.6-1.0); GLOMERULAR FILTRATION RATE 59; GLUCOSE 90 mg/dL (70-100); POTASSIUM 4.7 mEq/L (3.5-5.2); SODIUM 139 mEq/L (134-144)
[2017-03-06] MEDS: LEVOTHYROXINE 88 MCG TAB PO SCH (06:17)
[2017-03-06] MEDS: FUROSEMIDE 20 MG TAB PO SCH (06:18)
[2017-03-06] MEDS: NEBIVOLOL HCL 5 MG TAB PO SCH (06:18)
[2017-03-06] MEDS: ENOXAPARIN 30 MG/0.3 ML SYR SC SCH ×2 (07:58→20:48)
[2017-03-06] MEDS: MULTIVITAMINS 1 EACH TAB PO SCH (07:59)
--- NOTE | 2017-03-06 15:51 | HOSPPROG ---
Hospitalist Progress Note Assessment/Plan: # pelvic hematoma/pubic ramus fx, capital femoral fx and sacral fx- INR reversed by trauma surgery on admit extremity CT femoral, pubic and sacral fractures - non-operative - cont PT/OT - cont pain meds - restarted warfarin 03/05 with proph enoxaparin # a-fib/ppm/MVR - INR reversed for large pelvic hematoma- rates paced in 70's TELE (personally reviewed and interpreted) paced in 70's - carefully restarting anticoagulation INR 1.2 # anemia secondary to acute blood loss- status post packed red blood cell transfusion- H&H 12/20-> stable 01/22 Oxygen saturations 91% on RA - monitor H&H # MARGO - hemodynamic - creatinine 1.2-> 0.9 after transfusion - restart arb, diuretics - if renal function remains normal and BP can tolerate # sCHF - euvolemic- cont bystolic, restart arb, diuretics as above if BP and renal function allow- currently SBP too low in 100's # dementia - lives at home with caregivers; short term memory impaired # COPD/chronic resp failure - stable # 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 # diet cardiac # disposition> 2 midnights patient needs close monitoring with re-initiation of anticoagulation I have discussed the case with RN - stable for transfer to floor Subjective: tolerating PO and having daily BM Objective: Vital Signs Temp Pulse Resp BP Pulse Ox 36.6 C 73 16 125/68 H 96 03/06/17 15:44 03/06/17 15:44 03/06/17 15:44 03/06/17 15:44 03/06/17 15:44 Laboratory Results 03/06/17 05:00 03/06/17 05:00 03/05/17 03/06/17 03/07/17 05:59 05:59 05:59 Intake Total 1285 950 Output Total 350 400 Balance 935 950 -400 PT 15.2 SEC (12.0-15.0) H 03/06/17 05:00 INR 1.20 (0.83-1.16) H 03/06/17 05:00 - Physical Exam Constitutional: appears nourished Eyes: anicteric sclera Ears, Nose, Mouth, Throat: moist mucous membranes Cardiovascular: regular rate and rhythym, systolic murmur Respiratory: no respiratory distress Gastrointestinal: normoactive bowel sounds Genitourinary: no bladder fullness Skin: warm Musculoskeletal: No asymmetric calves Neurologic: AAOx3 Psychiatric: interacting appropriately Lymph, Heme, Immunologic: no cervical LAD ICD10 Worksheet Patient Problems: Problems Problem Status Onset Pelvic fracture Acute Pelvic hematoma Acute C. difficile diarrhea Acute ~08/13/16 Fracture of left clavicle Acute Left leg cellulitis Acute Leg ulcer Acute MRSA (methicillin resistant Staphylococcus aureus) Acute 10/07/16
--- NOTE | 2017-03-06 16:29 | TRAUMAPN ---
Assessment/Plan: PAD#2 Assessment: Doing well. Plan: Will follow Hct and urine output. Will restart anticoag. PAD#3 03/05/2017 Assessment: No stool or flatus Re-anticoagulation in progress HCT stable Plan: Will add mag citrate Continue re-anticoag PAD#4 03/06/2017 Good bowel movement last PM Has soft distended abdomen with + bowel sounds Re-Anticoagulation progressing slowly HCT stable Subjective: 03/06/2017 No specific complaints Objective: Vital Signs Temp Pulse Resp BP Pulse Ox 36.6 C 73 16 125/68 H 96 03/06/17 15:44 03/06/17 15:44 03/06/17 15:44 03/06/17 15:44 03/06/17 15:44 Laboratory Results 03/06/17 05:00 03/06/17 05:00 03/05/17 03/06/17 03/07/17 05:59 05:59 05:59 Intake Total 1285 950 Output Total 350 400 Balance 935 950 -400 PT 15.2 SEC (12.0-15.0) H 03/06/17 05:00 INR 1.20 (0.83-1.16) H 03/06/17 05:00 - C-Spine Clearance Cervical Spine Cleared: Yes Physical Exam - Physical Exam General Appearance: WD/WN, alert, no apparent distress Neck: non-tender, full range of motion, supple Respiratory: chest non-tender, lungs clear, normal breath sounds Cardiac/Chest: regular rate, rhythm (No monitor but presumed paced) Abdomen: normal bowel sounds, non-tender, soft, distended Pelvic Exam: deferred Rectal: deferred Back: Normal inspection Skin: normal color, warm/dry Neuro/Psych: no motor/sensory deficits, alert, normal mood/affect, oriented x 3 Time Spent w/Patient (minutes): 15
[2017-03-06] MEDS: SERTRALINE HCL 25 MG TAB PO SCH (20:48)
[2017-03-06] MEDS: FLUOCINONIDE 0.05% 15 GM CREAM TP SCH (20:50)
[2017-03-06] MEDS: CLOBETASOL 0.05% 15 GM CRTUBE TP SCH (20:50)
[2017-03-06] MEDS ORDERED: WARFARIN SODIUM 2 MG TAB PO SCH (21:00)
[2017-03-07 05:13] LABS: % IMMATURE GRANULYOCYTES 0.9 % (0.0-1.1); ABSOLUTE IMMATURE GRANULOCYTES 0.06 10^3/uL (0.00-0.10); ADD DIFF? NO; ADD MORPH? NO; ADD SCAN? NO; ATYPICAL LYMPHOCYTE FLAG 10 (0-99); FRAGMENT RBC FLAG 0 (0-99); HEMATOCRIT 26.2 % (38.0-47.0); HEMOGLOBIN 8.6 g/dL (12.6-16.3); LEFT SHIFT FLG 10 (0-99); LIPEMIA HEMOLYSIS FLAG 80 (0-99); MEAN CELL HEMOGLOBIN 30.6 pg (27.9-34.1); MEAN CELL HEMOGLOBIN CONCENTR. 32.8 g/dL (32.4-36.7); MEAN CELL VOLUME 93.2 fL (81.5-99.8); PLATELET CLUMPS FLAG 0 (0-99); PLATELET COUNT 148 10^3/uL (150-400); RED BLOOD CELL COUNT 2.81 10^6/uL (4.18-5.33); RED CELL DISTRIBUTION WIDTH 15.8 % (11.5-15.2)
[2017-03-07 05:15] LABS: INR 1.37 (0.83-1.16); PROTIME(PATIENT) 16.9 SEC (12.0-15.0)
[2017-03-07] MEDS: NEBIVOLOL HCL 5 MG TAB PO SCH (06:32)
[2017-03-07] MEDS: LEVOTHYROXINE 88 MCG TAB PO SCH (06:32)
[2017-03-07] MEDS: FUROSEMIDE 20 MG TAB PO SCH (06:34)
[2017-03-07] MEDS: HYDROCODONE/APAP 5/325 TAB PO PRN ×3 (08:26→22:33)
[2017-03-07] MEDS: ENOXAPARIN 30 MG/0.3 ML SYR SC SCH ×2 (08:26→22:20)
[2017-03-07] MEDS: MULTIVITAMINS 1 EACH TAB PO SCH (08:28)
--- NOTE | 2017-03-07 09:51 | TRAUMAPN ---
Assessment/Plan: 86yo F s/p mech fall c pelvic hematoma/pubic ramus fx, capital femoral fx and sacral fx - Pain is well controlled and she continues to tolerate a regular diet with appropriate return of bowel function. BM this AM was formed but c Diff sent as was ordered previously, low suspicion for c Diff and patient already on contact precautions for Hx of MRSA. Still not doing much from rehab standpoint requiring max assist but her pain does appear better controlled today. Still trying to get INR therapeutic but remains low at 1.3 from 1.2 yesterday likely from Vit K admin at admission. No new findings, appreciate IM assistance with multiple medical issues. To SNF when appropriate. Subjective: No complaints. Had large BM this AM Objective: Vital Signs Temp Pulse Resp BP Pulse Ox 36.9 C 77 15 145/75 H 95 03/07/17 08:00 03/07/17 08:00 03/07/17 08:00 03/07/17 08:00 03/07/17 08:00 Laboratory Results 03/07/17 04:27 03/06/17 05:00 03/06/17 03/07/17 03/08/17 05:59 05:59 05:59 Intake Total 950 850 Output Total 750 Balance 950 100 PT 16.9 SEC (12.0-15.0) H 03/07/17 04:27 INR 1.37 (0.83-1.16) H 03/07/17 04:27 - C-Spine Clearance Cervical Spine Cleared: Yes
--- NOTE | 2017-03-07 16:46 | ASMTCMCOM ---
CM Note CM Note Notes: Pt dghtrs Jyotsna [phone] and Tatianna [phone] Pt accepted at [facility] ([facility] still has no bed availability). Updated pt dghtr Jyotsna ([phone]) who is driving to [place] today and should be here this evening. Pt has 24/hr care with [facility], ROSALIA Chacko is contact [phone], Ginna reports they want to provide care at the SNF, she does not know if SNF will allow. CM to follow. D/c plan of care: SNF when medically stable. Date Signed: 03/07/2017 04:46 PM Electronically Signed By:RAY Friedman
--- NOTE | 2017-03-07 18:20 | HOSPPROG ---
Hospitalist Progress Note Assessment/Plan: DIAGNOSES: -fall with multiple trauma -multiple pelvic fractures with large intra-abdominal hematoma -suspected subcapital femoral neck fracture, nondisplaced, deemed in operative -gait instability and high fall risk -deconditioning and weakness -post hemorrhagic anemia -chronic anticoagulation from atrial fibrillation was reversed, now resuming INR at 1.37 today PLANS: -continue PT and OT -continue warfarin, INR monitoring -discharge planning SUBJECTIVE: Patient states her pain is not bad when she is inactive in bed at this time. Notable pain with activities No symptoms of fever, dyspnea, nausea No chest discomfort or shortness of breath OBJECTIVE Vitals reviewed: Stable without fever Exam: alert oriented skin warm dry color ok resps not labored lungs clear BSs heart regular abd soft nondistended nontender, bowel sounds present limbs warm, no edema iv site ok Objective: Vital Signs Temp Pulse Resp BP Pulse Ox 36.8 C 73 18 135/71 H 95 03/07/17 16:00 03/07/17 16:00 03/07/17 16:00 03/07/17 16:00 03/07/17 16:00 Laboratory Results 03/07/17 04:27 03/06/17 05:00 03/06/17 03/07/17 03/08/17 06:59 06:59 06:59 Intake Total 950 850 Output Total 750 Balance 950 100 PT 16.9 SEC (12.0-15.0) H 03/07/17 04:27 INR 1.37 (0.83-1.16) H 03/07/17 04:27 ICD10 Worksheet Patient Problems: Problems Problem Status Onset Pelvic fracture Acute Pelvic hematoma Acute C. difficile diarrhea Acute ~08/13/16 Fracture of left clavicle Acute Left leg cellulitis Acute Leg ulcer Acute MRSA (methicillin resistant Staphylococcus aureus) Acute 10/07/16
[2017-03-07] MEDS: FLUOCINONIDE 0.05% 15 GM CREAM TP SCH (22:19)
[2017-03-07] MEDS: SERTRALINE HCL 25 MG TAB PO SCH (22:20)
[2017-03-07] MEDS: CLOBETASOL 0.05% 15 GM CRTUBE TP SCH (22:20)
[2017-03-07] MEDS: WARFARIN SODIUM 2 MG TAB PO SCH (22:21)
[2017-03-08 05:13] LABS: INR 1.74 (0.83-1.16); PROTIME(PATIENT) 20.4 SEC (12.0-15.0)
[2017-03-08] MEDS: LEVOTHYROXINE 88 MCG TAB PO SCH (08:10)
[2017-03-08] MEDS: HYDROCODONE/APAP 5/325 TAB PO PRN ×3 (09:22→21:25)
[2017-03-08] MEDS: MULTIVITAMINS 1 EACH TAB PO SCH (09:23)
[2017-03-08] MEDS: FUROSEMIDE 20 MG TAB PO SCH (09:23)
[2017-03-08] MEDS: NEBIVOLOL HCL 5 MG TAB PO SCH (09:23)
[2017-03-08] MEDS: ENOXAPARIN 30 MG/0.3 ML SYR SC SCH ×2 (09:23→21:25)
--- NOTE | 2017-03-08 12:18 | TRAUMAPN ---
Assessment/Plan: PAD#2 Assessment: Doing well. Plan: Will follow Hct and urine output. Will restart anticoag. PAD#3 03/05/2017 Assessment: No stool or flatus Re-anticoagulation in progress HCT stable Plan: Will add mag citrate Continue re-anticoag PAD#4 03/06/2017 Good bowel movement last PM Has soft distended abdomen with + bowel sounds Re-Anticoagulation progressing slowly HCT stable PAD#6 03/08/2017 Assessment: Comfortable and doing well. Plan: Continue anticoagulation Subjective: No complaints Objective: Vital Signs Temp Pulse Resp BP Pulse Ox 36.6 C 78 16 144/68 H 97 03/08/17 07:55 03/08/17 09:23 03/08/17 07:55 03/08/17 09:23 03/08/17 07:55 Laboratory Results 03/07/17 04:27 03/06/17 05:00 03/07/17 03/08/17 03/09/17 05:59 05:59 05:59 Intake Total 850 Output Total 750 Balance 100 PT 20.4 SEC (12.0-15.0) H 03/08/17 04:35 INR 1.74 (0.83-1.16) H 03/08/17 04:35 - C-Spine Clearance Cervical Spine Cleared: Yes Physical Exam - Physical Exam General Appearance: WD/WN, alert, no apparent distress Neck: non-tender, full range of motion, supple Respiratory: chest non-tender, lungs clear, normal breath sounds Cardiac/Chest: regular rate, rhythm Abdomen: normal bowel sounds, non-tender, soft, distended Pelvic Exam: deferred Rectal: deferred Back: Normal inspection Skin: normal color, warm/dry Neuro/Psych: alert, normal mood/affect, oriented x 3 (15)
--- NOTE | 2017-03-08 17:16 | HOSPPROG ---
Hospitalist Progress Note Assessment/Plan: DIAGNOSES: -fall with multiple trauma -multiple pelvic fractures with large intra-abdominal hematoma -suspected subcapital femoral neck fracture, nondisplaced, deemed in operative -gait instability and high fall risk -deconditioning and weakness -post hemorrhagic anemia -chronic anticoagulation from atrial fibrillation was reversed, now resuming INR at 1.37 today PLANS: -continue PT and OT -continue warfarin, INR monitoring -discharge planning: Stable for transfer to [facility]pc facility at this time but beds available today SUBJECTIVE: Still with negligible pain while lying in bed, increased pain with activities No symptoms of fever, dyspnea, nausea No chest discomfort or shortness of breath OBJECTIVE Vitals reviewed: Stable without fever Exam: alert oriented skin warm dry color ok resps not labored lungs clear BSs heart regular abd soft nondistended nontender, bowel sounds present limbs warm, no edema iv site ok Lab data: INR now up to 1.74 Objective: Vital Signs Temp Pulse Resp BP Pulse Ox 36.6 C 88 16 125/69 H 99 03/08/17 15:38 03/08/17 15:38 03/08/17 15:38 03/08/17 15:38 03/08/17 15:38 Laboratory Results 03/07/17 04:27 03/06/17 05:00 03/07/17 03/08/17 03/09/17 06:59 06:59 06:59 Intake Total 850 Output Total 750 200 Balance 100 -200 PT 20.4 SEC (12.0-15.0) H 03/08/17 04:35 INR 1.74 (0.83-1.16) H 03/08/17 04:35 ICD10 Worksheet Patient Problems: Problems Problem Status Onset Pelvic fracture Acute Pelvic hematoma Acute C. difficile diarrhea Acute ~08/13/16 Fracture of left clavicle Acute Left leg cellulitis Acute Leg ulcer Acute MRSA (methicillin resistant Staphylococcus aureus) Acute 10/07/16
[2017-03-08] MEDS: WARFARIN SODIUM 2 MG TAB PO SCH (21:25)
[2017-03-08] MEDS: SERTRALINE HCL 25 MG TAB PO SCH (21:26)
[2017-03-08] MEDS: CLOBETASOL 0.05% 15 GM CRTUBE TP SCH (22:00)
[2017-03-08] MEDS: FLUOCINONIDE 0.05% 15 GM CREAM TP SCH (22:00)
[2017-03-09 05:02] LABS: ABSOLUTE IMMATURE GRANULOCYTES 0.07 10^3/uL (0.00-0.10); ADD DIFF? NO; ADD MORPH? NO; ADD SCAN? NO; ATYPICAL LYMPHOCYTE FLAG 0 (0-99); FRAGMENT RBC FLAG 0 (0-99); HEMATOCRIT 26.9 % (38.0-47.0); HEMOGLOBIN 8.7 g/dL (12.6-16.3); LEFT SHIFT FLG 0 (0-99); LIPEMIA HEMOLYSIS FLAG 80 (0-99); MEAN CELL HEMOGLOBIN 30.3 pg (27.9-34.1); MEAN CELL HEMOGLOBIN CONCENTR. 32.3 g/dL (32.4-36.7); MEAN CELL VOLUME 93.7 fL (81.5-99.8); MEAN PLATELET VOLUME 9.6 fL (8.7-11.7); PLATELET CLUMPS FLAG 10 (0-99); PLATELET COUNT 190 10^3/uL (150-400); RED BLOOD CELL COUNT 2.87 10^6/uL (4.18-5.33); RED CELL DISTRIBUTION WIDTH 16.2 % (11.5-15.2)
[2017-03-09 05:27] LABS: ANION GAP 8 mEq/L (8-16); CALCIUM 8.2 mg/dL (8.5-10.4); CARBON DIOXIDE 24 mEq/l (22-31); CHLORIDE 102 mEq/L (97-110); CREATININE 0.8 mg/dL (0.6-1.0); GLOMERULAR FILTRATION RATE > 60; GLUCOSE 88 mg/dL (70-100); POTASSIUM 4.3 mEq/L (3.5-5.2); SODIUM 134 mEq/L (134-144)
[2017-03-09] MEDS: FUROSEMIDE 20 MG TAB PO SCH (06:05)
[2017-03-09] MEDS: NEBIVOLOL HCL 5 MG TAB PO SCH (06:05)
[2017-03-09] MEDS: LEVOTHYROXINE 88 MCG TAB PO SCH (06:05)
[2017-03-09] MEDS: HYDROCODONE/APAP 5/325 TAB PO PRN (06:06)
[2017-03-09 07:58] VITALS: BP 139/76; PULSE 86; RESP 16; TEMP 97.3; O2SAT 95
[2017-03-09] MEDS: ENOXAPARIN 30 MG/0.3 ML SYR SC SCH (08:47)
[2017-03-09] MEDS: MULTIVITAMINS 1 EACH TAB PO SCH (08:48)
--- NOTE | 2017-03-09 10:31 | PDIAF ---
- Diagnosis Diagnosis: pelvic fractures Code Status: Do Not Resuscitate - Medication Management Discharge Medications: Medications to Continue on Transfer Clobetasol Propionate 1 adri TP 10/07/16 [Last Taken 03/01/17] Fluocinonide 0.05% [Lidex 0.05% Cream] 1 adri TP 10/07/16 [Last Taken 03/01/17 ] Furosemide [Lasix 20 MG (*)] 20 mg PO DAILY@10/07/16 [Last Taken 03/01/17] Levothyroxine [Synthroid 88 mcg (*)] 88 mcg PO DAILY@10/07/16 [Last Taken 08/12] Multivitamins [Multivitamin (*)] 1 each PO DAILY 10/07/16 [Last Taken 03/01/17] Nebivolol HCl [Bystolic 5 mg (*)] 5 mg PO DAILY@10/07/16 [Last Taken 03/01/17 ] Sertraline HCl [Zoloft 25mg (*)] 25 mg PO 10/07/16 [Last Taken 03/01/17] Spironolactone [Aldactone 25 MG (*)] 12.5 mg PO DAILY 10/07/16 [Last Taken 03/01] Valsartan [Diovan (*)] 80 mg PO DAILY 10/07/16 [Last Taken 03/01/17] Warfarin Sodium [Coumadin 2MG (*)] 6 mg PO MOTH@209910/07/16 [Last Taken ] Warfarin Sodium [Coumadin 2MG (*)] 4 mg PO SUTUWEFRSA@209903/02/17 [Last Taken 03/01/17] Hydrocodone/APAP 5/325 [[place] 5/325 (*)] 1 - 2 tab PO Q4 PRN tab 03/09/17 [ Last Taken Unknown] Discharge Medications: Refer to the Discharge Home Medication list for PRN reason. - Orders Isolation Type: Contact Isolation Diet Recommendation: no restrictions on diet - Labs/Radiology PT/INR Date: 03/11/17 - Follow Up Care Current Providers and Referrals: Moises Alicia MD [Medical Doctor] - NONE *PRIMARY CARE P,. [Primary Care Provider] - As per Instructions
[2017-03-09 11:08] LABS: INR 2.07 (0.83-1.16); PROTIME(PATIENT) 23.4 SEC (12.0-15.0)
--- NOTE | 2017-03-09 11:32 | GDS ---
[f rep st] DISCHARGE SUMMARY DISCHARGE DIAGNOSES: 1. Status post fall with multiple trauma. 2. Multiple pelvic fractures with large intraabdominal hematoma. 3. Suspected subcapital femoral neck fracture nondisplaced, deemed non operative. 4. Gait instability. 5. Deconditioning. 6. Post hemorrhagic anemia. 7. Chronic anticoagulation with history of atrial fibrillation. CONSULTANTS: Hospital Medicine and Trauma Surgery. HOSPITAL COURSE AND STAY BY PROBLEM: 1. Status post fall with left pubic fracture and large pelvic hematoma and nondisplaced sacral fract ure. The patient was admitted by the trauma service. Ortho was consulted on 03/03/[address] was [address] Dr[address] Moises Alicia. He did not believe that the subcapital femoral neck fracture was operative. He recommended partial weightbearing and assistance with a walker up to 50%. Requested that the patien t follow up with Orthopedics in 2-3 weeks. 2. The patient's anticoagulation was reversed during this hospital stay. Hemoglobin on initial pres entation was 11.4, dropped to a low of 8.4. She received 1 unit of packed red blood cells on 017. 3. On the day of discharge, the patient states her pain is controlled. Her warfarin has been resume d, and her INR yesterday was 1.74. Will repeat INR today. Her INR will need to be monitored. DIAGNOSTICS DONE THIS HOSPITAL STAY: CTs of the C-spine, head, extremities and abdomen were done on initial presentation. An echocardiogram done 03/03/2017, showed an ejection fraction of 55% with nor mal global systolic LV function. Refer to report for full details. DISCHARGE MEDICATIONS: Please refer to discharge medication reconciliation [facility] for details. DISCHARGE INSTRUCTIONS: The patient will be transferred to a [facility] facility for further re habilitation. She will need close monitoring of her INR. She should follow up with Dr. Alicia and Hernan ceballos in 2-3 weeks for re-evaluation of her pelvic fractures. /[id number]/MODL
--- NOTE | 2017-03-09 13:55 | ASMTCMCOM ---
CM Note CM Note Notes: Per MD patient medically cleared to go. [facility] in [place] notified and daughter present in room. They are aware patient will have room change at [facility] tomorrow, Orders and all notes updated via allscripts. Wheelchair pickup at 1pm. CM available if other needs arise. Date Signed: 03/09/2017 01:54 PM Electronically Signed By:Jennie Robins RN
--- NOTE | 2017-03-09 13:57 | ASDISCHSUM ---
Discharge Information Plan Status:SNF Medically Cleared to Leave:03/08/2017 Discharge Date:03/09/2017 01:20 PM CM D/C Disposition:Care Home Facility ADT D/C Disposition:Care Home Facility Projected Discharge Date:03/09/2017 12:00 AM Transportation at D/C:Wheelchair Van Discharge Delay Reason: Follow-Up Date:03/09/2017 12:00 AM Discharge Slot: Final Diagnosis:Fall-Afib, Pelvic and Clavical fx's, Cellulitis Placement Information Referral Type:*Longterm/SNF Referral ID:[id number] Provider Name:[facility]//[facility] Address 1:[address] [place] [address] Address 2: City:[place] Selection Factors: State:[place] Patient Contact Information Contact Name:TERRI Relationship:Daughter Address: Work Phone: City:[place] Alternate Phone: [facility]/Zip Code:[place] Email: Financial Information Financial Class: Primary Plan Desc:MEDICARE INPATIENT Primary Plan Number:[id number] Secondary Plan Desc:AUDREY Roberts [facility] Secondary Plan Number:[id number] Assessment Information [facility] CM Progress Note CM Note CM Note Notes: 86 year old female admitted after a fall and pelvic/clavical fx's. She has a hx of dementia, hypothyroid, HTN, CHF, Pvzp-zwrct-jvxdurntllzdrpd, COPD, MVR. She lives alone and has caregivers coming 2x/day. Patient will need SNF on discharge. DaughterTatianna is her MPOA. Date Signed: 03/03/2017 09:39 AM Electronically Signed By:Aydee Mcrae LCSW [facility] CM Progress Note CM Note CM Note Notes: This CM was unable to contact patient's MPOA, daughter Tatianna via phone#'s on [employer]. Contacted another daugther, Jyotsna [phone] and soke to her. Talked about patient's discharge needs given fall and fx's. Jyotsna reports that patient has [facility] at home at this time but would need to go to a SNF Rehab on discharge. [place]na lives [id number] but knew about [facility] and asked that I contact Ginna, , their [facility] RN for other suggestions. Left a message for Ginna. Asked Jyotsna for Tatianna's phone#s [phone] ; [phone] . Left a message on her phone. Date Signed: 03/03/2017 03:27 PM Electronically Signed By:Aydee Mcrae LCSW [facility] DINESH Progress Note CM Note CM Note Notes: Spoke to [facility]. [facility] have no female beds this week. [facility] and would "love" to admit her. [facility] is reviewing the referral. Contacted Ginna [phone] and left her a message regarding the [facility]. Date Signed: 03/04/2017 03:02 PM Electronically Signed By:Aydee Mcrae LCSW [facility] Progress Note CM Note CM Note Notes: Both PT/OT are recommending SNF placement as of today.[facility] has accepted. Patient not available to discuss. Will Check with her and her family in the morning. CM will follow. Date Signed: 03/05/2017 03:39 PM Electronically Signed By:Rachelle Marcos LCSW [facility] CM Progress Note CM Note CM Note Notes: Pt dghtrs Jyotsna [phone] and Tatianna [phone] Pt accepted at [facility] ([facility] still [facility] no bed availability). Updated pt dghtr Jyotsna ([phone]) who is driving to [place] today and should be here this evening. Pt has 24/hr care with [facility], RN Ginna is contact [phone], Ginna reports they want to provide care at the SNF, she does not know if SNF will allow. CM to follow. D/c plan of care: SNF when medically stable. Date Signed: 03/07/2017 04:46 PM Electronically Signed By:RAY Friedman [facility] CM Progress Note CM Note CM Note Notes: Per MD patient medically cleared to go. [facility] in [place] notified and daughter present in room. They are aware patient will have room change at [facility] tomorrow, Orders and all notes updated via allscripts. Wheelchair pickup at 1pm. CM available if other needs arise. Date Signed: 03/09/2017 01:54 PM Electronically Signed By:Jennie Robins RN LACE LACE Length of stay for Answers: 7-13 days current admission Acuity / Level of Care Answers: Was the patient admitted to hospital via the emergency department? Yes: Score: 8 Date Signed: 03/09/2017 01:55 PM Electronically Signed By:Jennie Robins RN Intervention Information
== END 2017-03-09 13:20 | DRG 964 ==
LOC: EDUNIT# → F3N 16:46 → F2N 18:45 → F3N 03-06 13:53
PROVIDERS: ADMIT Surgery; ATTEND Surgery
PROC: 30283B1 Transfusion of Nonautologous 4-Factor Prothrombin Complex Concentrate into Vein, Percutaneous Approach (ICD-10-PCS; principal; 2017-03-02)
DX: S32.512A Fracture of superior rim of left pubis, initial encounter for closed fracture (principal); S32.10XA Unspecified fracture of sacrum, initial encounter for closed fracture; S72.012A Unspecified intracapsular fracture of left femur, initial encounter for closed fracture; S30.1XXA Contusion of abdominal wall, initial encounter; W18.30XA Fall on same level, unspecified, initial encounter; Y92.190 Kitchen in other specified residential institution as the place of occurrence of the external cause; D62 Acute posthemorrhagic anemia; N17.9 Acute kidney failure, unspecified; R26.9 Unspecified abnormalities of gait and mobility; I11.0 Hypertensive heart disease with heart failure; I50.20 Unspecified systolic (congestive) heart failure; F03.90 Unspecified dementia, unspecified severity, without behavioral disturbance, psychotic disturbance, mood disturbance, and anxiety; I48.91 Unspecified atrial fibrillation; J44.9 Chronic obstructive pulmonary disease, unspecified; J96.10 Chronic respiratory failure, unspecified whether with hypoxia or hypercapnia; E03.9 Hypothyroidism, unspecified; Z95.2 Presence of prosthetic heart valve; Z91.81 History of falling; Z95.0 Presence of cardiac pacemaker; Z87.891 Personal history of nicotine dependence; Z86.14 Personal history of Methicillin resistant Staphylococcus aureus infection
CPT/HCPCS: 82947-QW; 96374; 97116-GP; 97161-GP; 97166-GO; 97530-GO; 97530-GP; 97535-GO; C9132; G0390; G8978-GP-CL; G8979-GP-CJ; G8987-GO-CL; G8988-GO-CJ; J1650; J2405; J3430; P9016; Q9967